=== PATIENT | female | born 1965 | race Caucasian/White ===

== ENCOUNTER 2020-09-29 18:50 | Emergency (ER) | payer OTHER ==
[~2020-09-29] VITALS: Ht 167.6 cm; Wt 108.2 kg
[~2020-09-29 18:50] MED LIST: ASPI325T6 PO; ASPIRIN E.C. 8181 MG PO; BACTRIM DS 8001 TAB PO; BYSTOLIC10 MG PO; CARDIZEM 30MG T30 MG PO; CITRACAL PLUS1 TAB PO; CUBICIN 500MG500 MG IV; CYMBALTA 30MG30 MG PO; DILANTIN 100MG100 MG PO; FERROUS SULFATE65 MG PO; LYRICA 150MG C150 MG PO; MAXIPIME IJ; METANX 2.8 MG-21 TA1 PO; MEVACOR 20M20 MG/TAB PO; MIRAPEX0.25 MG PO; MOBIC15 MG PO; NOVLOG; PREMARIN 0.60.625 M1 PO; RIFADIN300 MG PO; ROCEPHIN VIA1 G/VIAL IV; ROXICODONE 55 MG/TAB PO; TRICOR 48MG48 MG PO; TYLENOL 325MG325 MG PO; VITAMIN D5000 IU PO
[2020-09-29 20:25] LABS: BASO # 0.1 (0.0-0.2); BASO % 0.6 % (0.0-2.0); EOS # 0.4 (0.0-0.7); EOS % 5.3 % (0-4.0); GRAN # 5.6 (1.4-6.5); GRAN % 69.5 % (42.2-75.2); LYMPH # 1.4 (1.2-3.4); LYMPH % 17.4 % (20.0-51.0); MEAN CELL VOLUME 87 fl (80.0-100.0); MEAN CORPUSCULAR HEMOGLOBIN 30 pg (27.0-31.0); MEAN CORPUSCULAR HGB CONC 34 g/dl (33.0-37.0); MEAN PLATELET VOLUME 10.2 fl (7.4-10.4); MONO # 0.5 (0.1-0.6); MONO % 6.7 % (1.7-9.3); PLATELET COUNT 470 K/mm3 (130-400); RED BLOOD COUNT 3.39 M/mm3 (4.10-5.30); REDCELL DISTRIBUTION WIDTH-CV 13.3 % (11.5-14.5)
[2020-09-29 20:26] LABS: HEMATOCRIT 29.6 % (37.0-47.0)
[2020-09-29 20:41] LABS: ALBUMIN 3.9 gm/dL (3.5-5.0); BILIRUBIN,TOTAL 0.1 mg/dL (0.0-1.0); C-REACTIVE PROTEIN 6.1 mg/dL (0.0-0.9); CALCIUM 10.1 mg/dL (8.4-10.2); CREATININE, serum 1.53 (0.52-1.25); POTASSIUM 3.8 mmol/L (3.4-5.0); TOTAL PROTEIN 7.7 gm/dL (6.4-8.2)
[2020-09-29 21:23] LABS: ERYTHROCYTE SEDIMENTATION RATE 85 mm/hr (0-30)
[2020-09-29 22:13] VITALS: BP 155/61; PULSE 65
== END 2020-09-29 22:18 | disposition home or self-care (01) ==
LOC: COL.ER 18:50
PROVIDERS: Emergency Medicine
DX: T81.33XA Disruption of traumatic injury wound repair, initial encounter (principal); T87.40 Infection of amputation stump, unspecified extremity; E11.9 Type 2 diabetes mellitus without complications; I10 Essential (primary) hypertension; Z79.4 Long term (current) use of insulin; Z79.899 Other long term (current) drug therapy; X58.XXXA Exposure to other specified factors, initial encounter
CPT/HCPCS: J7030

== ENCOUNTER 2020-10-03 12:41 | Inpatient (IN) | payer OTHER ==
[~2020-10-03] VITALS: Ht 167.7 cm; Wt 108.0 kg
[2020-10-04] VITALS (12 sets, daily range): BP systolic 134–150; BP diastolic 42–62; PULSE 59–70; TEMP 97.8–98.9
--- NOTE | 2020-10-04 07:30 | NUR ---
Accuchjp 376 and patient states that she was 115 this AM and states that she turned off the Insulin pump. Gave herself bolus of 3.7units of Novolog insulin. Will continue to monitor.
[2020-10-04] MEDS ORDERED: ASPIRIN E.C. 8181 MG PO (07:49)
[2020-10-04] MEDS ORDERED: ZEBETA 5MG5 MG PO (07:53)
[2020-10-04] MEDS ORDERED: CEPHALEXIN500 M1 PO (07:55)
[2020-10-04] MEDS ORDERED: BACTRIM DS 8001 TAB PO (07:56)
--- NOTE | 2020-10-04 08:00 | NUR ---
Accucheck now 337. Anesthesia in the room and informed of glucose levels. IV was started by Genet VILLANUEVA from IV services.
[2020-10-04 10:33] LABS: MEAN CELL VOLUME 91 fl (80.0-100.0); MEAN CORPUSCULAR HGB CONC 32 g/dl (33.0-37.0); MEAN PLATELET VOLUME 9.8 fl (7.4-10.4); PLATELET COUNT 493 K/mm3 (130-400); RED BLOOD COUNT 3.07 M/mm3 (4.10-5.30); REDCELL DISTRIBUTION WIDTH-CV 13.6 % (11.5-14.5)
[2020-10-04 10:41] LABS: HEMATOCRIT 27.9 % (37.0-47.0); MEAN CORPUSCULAR HEMOGLOBIN 29 pg (27.0-31.0)
[2020-10-04 10:46] LABS: C-REACTIVE PROTEIN 2.5 mg/dL (0.0-0.9); CALCIUM 9.5 mg/dL (8.4-10.2); CREATININE, serum 1.8 (0.52-1.25); POTASSIUM 5.2 mmol/L (3.4-5.0)
[2020-10-04 11:45] LABS: BAND 1 % (0-10); EOSINOPHIL 8 % (0-4); HYPOCHROMIA 1+; LYMPHOCYTE 18 % (20.0-51.0); METAMYELOCYTE 1 % (0-0); NEUTROPHILS 69 % (42.0-75.2); PLATELET ESTIMATE INCREASED (NORMAL)
--- NOTE | 2020-10-04 18:20 | NUR ---
Patient doing well post op. Alert and oriented x 3. Wound vac to LLE with bloody drainage present. Patient denies pain at this time. LLE elevated on x 2 pillows. Tolerating diet without difficulties. Transfered to BS with SBA. Prosthesis to RLE. Primitivo wrap to LLE with mild drainage present. Patient denies further needs at this time. Will report off to x ray developing machine operator.
--- NOTE | 2020-10-04 20:00 | NUR ---
PATIENT IS A&O. VSS. DENIES PAIN IN LLE. LEFT BKA DRESSING IS CD&I WITH ACEWRAP AND ICE PACK INPLACE. WOUND VAC TO LLE WITH MOD AMOUNTS OF BLOODY DRAINAGE NOTED. PATIENT EAT/DRINK/VOIDING SUFFICENT AMOUNTS. NO C/O N/V. SUPPER TRAY REMOVED. HS BS WAS 228, PATIENT SELF DOSED INSULIN PUMP. LEFT WRIST AND LEFT HAND IV TO INT. HEAD TO TOE ASSESSMENT COMPLETE. MEDS GIVEN. NO OTHER NEEDS. CALL LIGHT IN REACH.
[2020-10-05 04:19] VITALS: BP 143/53; PULSE 88; TEMP 98.5
[2020-10-05 06:52] LABS: BASO % 0.3 % (0.0-2.0); EOS # 0.1 (0.0-0.7); EOS % 0.5 % (0-4.0); GRAN # 7.2 (1.4-6.5); GRAN % 73.3 % (42.2-75.2); LYMPH # 1.8 (1.2-3.4); LYMPH % 18.1 % (20.0-51.0); MEAN CELL VOLUME 92 fl (80.0-100.0); MEAN CORPUSCULAR HGB CONC 32 g/dl (33.0-37.0); MEAN PLATELET VOLUME 10.4 fl (7.4-10.4); MONO # 0.7 (0.1-0.6); MONO % 6.9 % (1.7-9.3); PLATELET COUNT 471 K/mm3 (130-400); RED BLOOD COUNT 2.63 M/mm3 (4.10-5.30)
[2020-10-05 06:57] LABS: HEMATOCRIT 24.3 % (37.0-47.0); HEMOGLOBIN 7.8 g/dl (12.5-16.0); MEAN CORPUSCULAR HEMOGLOBIN 30 pg (27.0-31.0)
[2020-10-05 07:05] LABS: ANION GAP 5 mmol/L (7-16); BLOOD UREA NITROGEN 31 mg/dL (7-17); CALCIUM 9.6 mg/dL (8.4-10.2); CARBON DIOXIDE 24 mmol/L (22-30); CHLORIDE 109 mmol/L (98-107); CREATININE, serum 1.59 (0.52-1.25); GLUCOSE 78 mg/dL (74-106); MAGNESIUM 2.1 mg/dL (1.6-2.3); POTASSIUM 4.3 mmol/L (3.4-5.0); SODIUM 137 mmol/L (137-145)
[2020-10-05 07:35] LABS: PHENYTOIN (DILANTIN) < 3.0 ug/mL (10.0-20.0)
[2020-10-05 08:43] VITALS: BP 155/66; PULSE 76; TEMP 98.3
--- NOTE | 2020-10-05 10:30 | NUR ---
Patient has been doing well this morning. Her glucose is better after her low this morning. She ate breakfast and her glucose is 210 at this time. She used her meter to check it. Her wound vac is intact and working. Patient denies pain and nausea. Assisted her with getting dressed. She gets to the BSC on her own without issues. No other changes at this time. Call light within reach.
[2020-10-05 11:20] VITALS: BP 153/57; PULSE 69; TEMP 97.8
--- NOTE | 2020-10-05 11:26 | NUR ---
First visit from the manager enrollment. No needs right now.
--- NOTE | 2020-10-05 16:16 | NUR ---
Enamel Shader met with the patient and the patient's Chad to complete intake. The patient lives in [place] with Chad. The patient has one a right prosthesis and once her infection on the left stump heals she will order/have a left one as well. The patient has a cane, walker, rollator, knee scooter, 2 wheelchairs, shower seat, and bedside commode. The patient's PCP is Dr. Paige and patient receives medication at [facility] or [facility]. The patient does not have advance directives but was interested in DPOA-HC form. Form provided. The patient plans to return home with spouse support. The patient declined home health. *Discharge disposition: Home with spouse*
[2020-10-05 16:32] VITALS: BP 142/52; PULSE 63; TEMP 97.8
--- NOTE | 2020-10-05 18:30 | NUR ---
Patients antibiotics given later than ordered because neither of her IV sites would work. She has an order for a PICC line but the AIV nurse is not able to place it today. It took several tries to get the one she has. Patient has not had any pain today. Changed the acewrap to her wound vac site, it was falling off. She has 400ml of blood drainage in the wound vac. No other changes at this time. Call laura davila.
[2020-10-05 19:18] VITALS: BP 150/56; PULSE 64; TEMP 98.2
--- NOTE | 2020-10-05 20:30 | NUR ---
Pt. sitting up in bed at this time. Pt. is A&OX3, assessment complete. INT to lt. forearm patent. Pt. denies pain or other needs, call light within reach.
[2020-10-05 23:55] VITALS: BP 144/46; PULSE 69; TEMP 98.2
[2020-10-06] VITALS (7 sets, daily range): BP systolic 108–145; BP diastolic 41–58; PULSE 58–68; TEMP 97.9–98.4
[2020-10-06 06:43] LABS: BASO # 0.1 (0.0-0.2); BASO % 0.8 % (0.0-2.0); EOS # 0.3 (0.0-0.7); EOS % 4.3 % (0-4.0); GRAN # 3.7 (1.4-6.5); GRAN % 50.5 % (42.2-75.2); LYMPH # 2.6 (1.2-3.4); LYMPH % 35.2 % (20.0-51.0); MEAN CELL VOLUME 93 fl (80.0-100.0); MEAN CORPUSCULAR HGB CONC 32 g/dl (33.0-37.0); MEAN PLATELET VOLUME 10.2 fl (7.4-10.4); MONO # 0.6 (0.1-0.6); PLATELET COUNT 462 K/mm3 (130-400); RED BLOOD COUNT 2.77 M/mm3 (4.10-5.30); REDCELL DISTRIBUTION WIDTH-CV 14.3 % (11.5-14.5); RETIC % 3.6 % (0.5-3.52)
[2020-10-06 06:44] LABS: HEMATOCRIT 25.7 % (37.0-47.0); HEMOGLOBIN 8.2 g/dl (12.5-16.0); MEAN CORPUSCULAR HEMOGLOBIN 30 pg (27.0-31.0)
[2020-10-06 06:47] LABS: PROTHROMBIN TIME 10.9 SECONDS (9.7-12.8)
[2020-10-06 06:57] LABS: ALANINE AMINOTRANSFERASE 16 U/L (4-34); ALBUMIN 3.4 gm/dL (3.5-5.0); ALKALINE PHOSPHATASE 112 U/L (50-136); ANION GAP 5 mmol/L (7-16); AST,SGOT 25 U/L (15-37); BILIRUBIN,TOTAL < 0.1 mg/dL (0.0-1.0); BLOOD UREA NITROGEN 30 mg/dL (7-17); CALCIUM 9.5 mg/dL (8.4-10.2); CARBON DIOXIDE 26 mmol/L (22-30); CHLORIDE 107 mmol/L (98-107); CREATININE, serum 1.45 (0.52-1.25); GLUCOSE 173 mg/dL (74-106); POTASSIUM 4.5 mmol/L (3.4-5.0); SODIUM 138 mmol/L (137-145); TOTAL PROTEIN 6.8 gm/dL (6.4-8.2)
--- NOTE | 2020-10-06 10:10 | NUR ---
Initial visit; Patient thanked fitness and wellness director for looking in on her and offering God's blessings and to keep her in [employer] Offbearer's prayers.
--- NOTE | 2020-10-06 11:56 | NUR ---
Assessment completed, alert/oriented, vital signs stable, denies pain, plans for I&D later today, denies pain at this time, left stump wound vac in place and functioning properly, heart RRR, lungs CTA/no resp. difficulty noted, she is NPO, motitorying blood sugars closely, denies other needs, will continue to monitor
--- NOTE | 2020-10-06 17:30 | NUR ---
Patient arrived back to surgical 343 at this time from PACU, she is alert/oriented, vital signs stable, pain controlled, she had low blood sugars in PACU and she is taking PO without difficulty, will continue to closely motitor sugars, present at bedside, she denies pain at this time
[2020-10-07 00:02] VITALS: BP 116/43; PULSE 69; TEMP 97.9
[2020-10-07 03:59] VITALS: BP 123/42; PULSE 71; TEMP 98.3
--- NOTE | 2020-10-07 05:29 | NUR ---
Awake, alert, oriented x 4, Bilateral BKA, L BKA with dressing clean/dry/intact, hemovac w/o issue, wound vac in use, call abrams w/i reach, denies need for prn pain medication, tolerating po diet w/o issue, will continue to monitor.
[2020-10-07 06:51] LABS: BASO # 0.1 (0.0-0.2); BASO % 0.7 % (0.0-2.0); EOS # 0.4 (0.0-0.7); EOS % 5.2 % (0-4.0); GRAN # 4.3 (1.4-6.5); GRAN % 53.3 % (42.2-75.2); LYMPH # 2.6 (1.2-3.4); LYMPH % 31.4 % (20.0-51.0); MEAN CELL VOLUME 96 fl (80.0-100.0); MEAN CORPUSCULAR HGB CONC 31 g/dl (33.0-37.0); MEAN PLATELET VOLUME 10.2 fl (7.4-10.4); MONO # 0.7 (0.1-0.6); MONO % 8.7 % (1.7-9.3); PLATELET COUNT 419 K/mm3 (130-400); RED BLOOD COUNT 2.47 M/mm3 (4.10-5.30); REDCELL DISTRIBUTION WIDTH-CV 14.6 % (11.5-14.5)
[2020-10-07 06:52] LABS: HEMATOCRIT 23.6 % (37.0-47.0); HEMOGLOBIN 7.4 g/dl (12.5-16.0); MEAN CORPUSCULAR HEMOGLOBIN 30 pg (27.0-31.0)
[2020-10-07 07:07] LABS: CREATININE, serum 1.26 (0.52-1.25); POTASSIUM 4.5 mmol/L (3.4-5.0)
[2020-10-07 07:23] LABS: CALCIUM 9.1 mg/dL (8.4-10.2)
[2020-10-07 08:30] VITALS: BP 104/31; PULSE 69; TEMP 98.8
[2020-10-07 12:51] VITALS: BP 147/45; PULSE 75; TEMP 98.2
[2020-10-07 16:03] VITALS: BP 147/54; PULSE 69; TEMP 98
--- NOTE | 2020-10-07 18:21 | NUR ---
Patient doing well throughout the day, denies pain. PICC line to GUDELIA without complications. Minimal needs throughout the day. Primitivo wrap to LLE is CDI, Hemovac with minimal bloody drainage present, Wound vac present. Patient denies pain or further needs at this time. Will report off to shift leader.
--- NOTE | 2020-10-07 19:07 | NUR ---
Awake, alert, oriented x 4, denies pain, denies needs at this time, dressing to L BKA c/d/i, hemavac intact, wound vac intact w/o issue, no s/s of hypo/hyper glycemia, tolerating diet, updated on plan of care, verbalized understanding.
[2020-10-07 19:44] VITALS: BP 149/57; PULSE 73; TEMP 97.9
[2020-10-08 00:23] VITALS: BP 87/40; PULSE 60; TEMP 97.8
[2020-10-08 00:36] VITALS: BP 107/43
[2020-10-08 04:19] VITALS: BP 105/45; PULSE 59; TEMP 98.1
[2020-10-08 06:14] LABS: HEMATOCRIT 24.1 % (37.0-47.0); HEMOGLOBIN 7.7 g/dl (12.5-16.0); MEAN CELL VOLUME 94 fl (80.0-100.0); MEAN CORPUSCULAR HEMOGLOBIN 30 pg (27.0-31.0); MEAN CORPUSCULAR HGB CONC 32 g/dl (33.0-37.0); MEAN PLATELET VOLUME 10.4 fl (7.4-10.4); PLATELET COUNT 370 K/mm3 (130-400); RED BLOOD COUNT 2.56 M/mm3 (4.10-5.30); REDCELL DISTRIBUTION WIDTH-CV 14.2 % (11.5-14.5)
[2020-10-08 06:22] LABS: CALCIUM 9.5 mg/dL (8.4-10.2); CREATININE, serum 1.23 (0.52-1.25); POTASSIUM 4.5 mmol/L (3.4-5.0)
[2020-10-08 07:08] VITALS: BP 128/45; PULSE 66; TEMP 97.3
--- NOTE | 2020-10-08 09:00 | NUR ---
Patient in bed resting. Alert and oriented x 3. Assessment complete. Dr. Rojas removed drains and wound vac early this AM. Denies pain at this time. Primitivo wrap to LLE is CDI. PICC line to GUDELIA without complications. Denies further needs at this time.
--- NOTE | 2020-10-08 09:03 | NUR ---
Contacted SW for discharge planning.
--- NOTE | 2020-10-08 11:15 | NUR ---
Sw setup Home IV Therapy with Jesusita (# [phone]). The Sw faxed over medical documentations. Jesusita called Sw and approved pt. The pt has used services with the pt in June 2020. Jesusita informed Sw that they would provided everything the pt needs. No supply orders were made. The pt did not want to use HH services because she has experience with her picline. The pt is also a nurse. Jesusita informed Sw she would call the pt and setup the next schedule dose. No other needs stated at this time. Sw to follow up as needed. Elise gave the original med script back to nurse.
== END 2020-10-08 12:20 | disposition home or self-care (01) | DRG 475 ==
LOC: INPTSU 10-04 06:13 → SURG 10-04 06:13
PROVIDERS: Internal Medicine; Physician Assistant; ADMIT Orthopaedic Surgery
PROC: 0Y6J0Z1 Detachment at Left Lower Leg, High, Open Approach (ICD-10-PCS; principal; 2020-10-04 08:45)
DX: T87.81 Dehiscence of amputation stump (principal); N17.9 Acute kidney failure, unspecified; M96.842 Postprocedural seroma of a musculoskeletal structure following a musculoskeletal system procedure; T87.44 Infection of amputation stump, left lower extremity; E78.5 Hyperlipidemia, unspecified; I10 Essential (primary) hypertension; G40.909 Epilepsy, unspecified, not intractable, without status epilepticus; E10.40 Type 1 diabetes mellitus with diabetic neuropathy, unspecified; E10.649 Type 1 diabetes mellitus with hypoglycemia without coma; D64.9 Anemia, unspecified; D47.3 Essential (hemorrhagic) thrombocythemia; Z79.82 Long term (current) use of aspirin; Z88.0 Allergy status to penicillin; Z88.1 Allergy status to other antibiotic agents; Z88.8 Allergy status to other drugs, medicaments and biological substances; Z20.822 Contact with and (suspected) exposure to COVID-19; Z89.511 Acquired absence of right leg below knee; Z96.41 Presence of insulin pump (external) (internal)
CPT/HCPCS: 99223; 99232-AI; A6550; C1751; J0690; J0696; J1100; J2405; J2704; J2765; J3010; J3370; J7030; J7040; J7050

== ENCOUNTER 2021-01-18 10:30 | Inpatient (IN) | payer OTHER ==
[2021-01-18] VITALS (335 sets, daily range): BP systolic 86–170; BP diastolic 50–92; PULSE 64–103; TEMP 98–98.2; O2SAT 77–100
[~2021-01-18] VITALS: Ht 167.6 cm; Wt 113.4 kg
[~2021-01-18 10:30] MED LIST changes: +CEPHALEXIN500 M1 PO; +ZEBETA 5MG5 MG PO
--- NOTE | 2021-01-18 12:50 | NUR ---
Pt arrived by EMS from [facility]. Pt on Nitro drip at 10mcg/min and Heparin drip at 1000units/hr. Pt complaining of chest pain at a 7, that worsens with cough or movement. BG 222. Pt oriented to room and floor. Dr. Mart notified of Pt's arrival. Bruno Felix bedside. Will titrate nitro as needed for bp/cp. Will continue to monitor.
--- NOTE | 2021-01-18 15:30 | NUR ---
AND MIGUEL A RAY NOTIFIED OF TROPONIN 12.9. STATED OK NOT TO CALL WITH NEXT TROPONIN IF TRENDING DOWN. PLAN FOR CARDIAC CATH TOMORROW.
--- NOTE | 2021-01-18 16:45 | NUR ---
notified of BG 446. Will give levimir early and novolog 12 per sliding scale.
[2021-01-18 18:11] LABS: COLLECTION METHOD CATHETER
[2021-01-18 18:21] LABS: MUCOUS Present /lpf; PH 5 (5-8); SQUAMOUS EPITHELIAL 20-50 /hpf; URINE APPEARANCE Cloudy; URINE BACTERIA Rare /hpf; URINE BILIRUBIN Negative (NEGATIVE); URINE BLOOD 1+ (NEGATIVE); URINE COLOR Yellow; URINE GLUCOSE 3+ (NEGATIVE); URINE KETONE 1+ (NEGATIVE); URINE LEUKOCYTE ESTERASE Negative (NEGATIVE); URINE NITRATE Negative (NEGATIVE); URINE PROTEIN(semi-quant) 3+ (NEGATIVE); URINE UROBILINOGEN Negative (NEGATIVE)
[2021-01-18 22:56] LABS: CREATININE, serum 2.25 mg/dL (0.57-1.11)
[2021-01-18 22:57] LABS: SODIUM 130 mmol/L (137-145)
[2021-01-18 23:10] LABS: CALCIUM 9.1 mg/dL (8.4-10.2); CREATININE, serum 2.28 mg/dL (0.57-1.11); MAGNESIUM 1.8 mg/dL (1.6-2.6); PHOSPHOROUS 4.4 mg/dL (2.3-4.7); POTASSIUM 4.7 mmol/L (3.5-4.5)
[2021-01-18 23:12] LABS: FRACTIONAL EXCRETION OF NA+ 0.27 %
[2021-01-19] VITALS (675 sets, daily range): BP systolic 91–128; BP diastolic 50–90; PULSE 54–70; TEMP 97.3–98.2; O2SAT 77–100
[2021-01-19 00:31] LABS: ARTERIAL BLD GAS TCO2 CT 17.7; ARTERIAL BLOOD GAS HCO3 16.9 meq/L (22-26); ARTERIAL BLOOD GAS PCO2 26.8 mmHg (35-45); ARTERIAL BLOOD GAS PO2 90.6 mmHg (80-100); ARTERIAL BLOOD GAS pH 7.42 (7.35-7.45)
[2021-01-19 02:02] LABS: CALCIUM 8.7 mg/dL (8.4-10.2); CREATININE, serum 2.35 mg/dL (0.57-1.11); POTASSIUM 3.9 mmol/L (3.5-4.5)
[2021-01-19 04:09] LABS: MEAN CELL VOLUME 90 fl (80.0-100.0); MEAN CORPUSCULAR HGB CONC 32 g/dl (33.0-37.0); MEAN PLATELET VOLUME 9.5 fl (7.4-10.4); PLATELET COUNT 527 K/mm3 (130-400); RED BLOOD COUNT 2.75 M/mm3 (4.10-5.30); REDCELL DISTRIBUTION WIDTH-CV 14.6 % (11.5-14.5)
[2021-01-19 04:13] LABS: HEMATOCRIT 24.7 % (37.0-47.0); MEAN CORPUSCULAR HEMOGLOBIN 29 pg (27.0-31.0)
[2021-01-19 04:28] LABS: BILIRUBIN,TOTAL 0.3 mg/dL (0.2-1.2); CALCIUM 8.5 mg/dL (8.4-10.2); CHOLESTEROL RISK RATIO 3.6; CREATININE, serum 2.48 mg/dL (0.57-1.11); MAGNESIUM 1.7 mg/dL (1.6-2.6); POTASSIUM 3.8 mmol/L (3.5-4.5); TOTAL PROTEIN 6.3 gm/dL (6.2-8.1)
[2021-01-19 04:43] LABS: THYROID STIMULATING HORMONE 0.759 uIU/mL (0.350-4.940)
[2021-01-19 04:53] LABS: BAND 24 % (0-10); EOSINOPHIL 1 % (0-4); LYMPHOCYTE 6 % (20.0-51.0); METAMYELOCYTE 2 % (0-0); NEUTROPHILS 58 % (42.0-75.2)
[2021-01-19 04:54] LABS: HYPOCHROMIA 1+; PLATELET ESTIMATE INCREASED (NORMAL)
[2021-01-19 07:01] LABS: CALCIUM 8.4 mg/dL (8.4-10.2); CREATININE, serum 2.6 mg/dL (0.57-1.11); POTASSIUM 3.9 mmol/L (3.5-4.5)
--- NOTE | 2021-01-19 07:15 | NUR ---
RECEIVED REPORT FROM KAY GLASS. PT RESTING IN BED. VSS. CALL LIGHT WITHIN REACH. SEE GTT FLOWSHEET.
[2021-01-19 07:52] LABS: PATHOLOGY DIFF REVIEW OK
[2021-01-19 08:35] LABS: CALCIUM 8.3 mg/dL (8.4-10.2); CREATININE, serum 2.74 mg/dL (0.57-1.11); POTASSIUM 4.3 mmol/L (3.5-4.5)
--- NOTE | 2021-01-19 10:00 | NUR ---
BLADDER SCAN PERFORMED, ONLY 8ML NOTED. DR MEHTA NOTIFIED.
[2021-01-19 10:09] LABS: CALCIUM 8.5 mg/dL (8.4-10.2); CREATININE, serum 2.83 mg/dL (0.57-1.11); POTASSIUM 4.1 mmol/L (3.5-4.5)
--- NOTE | 2021-01-19 11:33 | NUR ---
SW met with patient at bedside and completed an MPOA, naming her as her agent. Patient is alert & oriented. Original and copies provided to patient and copy placed on her chart.
--- NOTE | 2021-01-19 11:40 | NUR ---
SW spoke with patient's , Chad Jerry, [phone]) to complete intake and discuss d/c plan as hospitalist was with patient. She and her live in [place] and he states she has a cane, wheelchair, bedside commode, wheely walker and a front wheel walker at home. She has no home 02 needs but she uses a CPAP at night. She gets her medications from [facility] in [place] with no difficulty obtaining them. Patient does not have an MPOA but this worker informed patient's that we could complete one as long as she is a/o. Patient's also informed this worker that patient wanted to change her status from DNR to full recessitation. This worker relayed this to KAY Cutler and she checked with patient, patient confirmed. SW will continue to follow for any discharge needs.
--- NOTE | 2021-01-19 12:06 | NUR ---
SEE MERGE FOR MEDICATION ADMINISTRATION TIMES/DOSAGES AND INTRA/POST SEDATION ASSESSMENT.
[2021-01-19 12:47] LABS: CALCIUM 8.6 mg/dL (8.4-10.2); CREATININE, serum 2.89 mg/dL (0.57-1.11); POTASSIUM 3.9 mmol/L (3.5-4.5)
--- NOTE | 2021-01-19 13:55 | NUR ---
PT TO CATH PROCEDURE. SPOKE TO KAY MARCH IN CATH, PLAN IS TO DO RHC/LHC AND GET CENTRAL LINE CHANGED THEN POTENTIALLY HAVE RADIOLOGIST PLACE HD CATHETER IN [place] IF STILL AVAILABLE AT THAT TIME.
--- NOTE | 2021-01-19 15:30 | NUR ---
PT BACK FROM CATH PROCEDURE. PT IN REVERSE TRENDELENBERG, FLAT TIME STARTED AT 1445. LT GROIN CATH SITE, DRAINAGE NOTED ON GAUZE BUT SOFT AND NOT TENDER TO TOUCH, WILL MONITOR CLOSELY. PLACED BACK ON BEDSIDE CONTINUOUS MONITOR. VSS. CALL LIGHT WITHIN REACH. FLOR GRADY STATES HE WILL BE BACK SHORTLY TO DISCUSS WITH HSUBAND AND PT ABOUT POC AND CATH PROCEDURE.
--- NOTE | 2021-01-19 16:13 | NUR ---
FLOR GRADY AT BEDSIDE DISCUSSING POC AND ANSWERING QUESTIONS AT THIS TIME.
--- NOTE | 2021-01-19 19:15 | NUR ---
Dressing to left groin cath site saturated. Dressing changed, no active bleeding noted and area surrounding soft. 4x4 with tegaderm applied, will monitor for further bleeding
[2021-01-19 23:37] LABS: PARTIAL THROMBOPLASTIN TIME 48.2 SECONDS (26.0-37.0)
[2021-01-20] VITALS (215 sets, daily range): BP systolic 99–157; BP diastolic 59–96; PULSE 55–64; TEMP 97–98.1; O2SAT 73–100
[2021-01-20 04:52] LABS: MEAN CELL VOLUME 90 fl (80.0-100.0); MEAN CORPUSCULAR HGB CONC 32 g/dl (33.0-37.0); MEAN PLATELET VOLUME 9.7 fl (7.4-10.4); PLATELET COUNT 515 K/mm3 (130-400); RED BLOOD COUNT 2.83 M/mm3 (4.10-5.30); REDCELL DISTRIBUTION WIDTH-CV 14.8 % (11.5-14.5)
[2021-01-20 05:02] LABS: HEMATOCRIT 25.5 % (37.0-47.0); HEMOGLOBIN 8.2 g/dl (12.5-16.0); MEAN CORPUSCULAR HEMOGLOBIN 29 pg (27.0-31.0)
[2021-01-20 05:09] LABS: CALCIUM 8.2 mg/dL (8.4-10.2); CREATININE, serum 3.69 mg/dL (0.57-1.11); POTASSIUM 4.5 mmol/L (3.5-4.5)
[2021-01-20 05:16] LABS: BAND 12 % (0-10); EOSINOPHIL 1 % (0-4); HYPOCHROMIA 1+; LYMPHOCYTE 15 % (20.0-51.0); METAMYELOCYTE 1 % (0-0); NEUTROPHILS 65 % (42.0-75.2); PLATELET ESTIMATE INCREASED (NORMAL)
[2021-01-20 05:17] LABS: ANISOCYTOSIS 1+
--- NOTE | 2021-01-20 07:20 | NUR ---
RECEIVED REPORT FROM KAY GLASS. PT RESTING IN BED ON 2L VIA NC. VSS. CALL LIGHT WITHIN REACH. SEE GTT FLOWSHEET. FC PATENT AND DRAINING TO GRAVITY.
--- NOTE | 2021-01-20 09:17 | NUR ---
PT C/O SHOB AND LEFT STERNAL CHEST PAIN THAT RADIATES STRAIGHT TO HER BACK 11/01. PT APPEARS RESTLESS. SEE GTT FLOWSHEET FO RNITRO GTT TITRATIONS.
--- NOTE | 2021-01-20 16:40 | NUR ---
PATIENT TOLERATED HER 1ST HD TX WITH NO FLUID REMOVAL. NEXT PLANNED HD TX PENDING LABS & ASSESSMENT.
[2021-01-20 16:46] LABS: HEPATITIS B SURFACE ANTIBODY 57.2 (()); HEPATITIS B SURFACE ANTIGEN Negative (Negative); HEPATITIS C VIRUS ANTIBODY Negative (Negative)
[2021-01-21] VITALS (9 sets, daily range): BP systolic 110–196; BP diastolic 65–105; PULSE 56–70; TEMP 97.6–98.6
[2021-01-21 04:52] LABS: MEAN CELL VOLUME 89 fl (80.0-100.0); MEAN CORPUSCULAR HGB CONC 33 g/dl (33.0-37.0); MEAN PLATELET VOLUME 10.3 fl (7.4-10.4); PLATELET COUNT 462 K/mm3 (130-400); RED BLOOD COUNT 3.03 M/mm3 (4.10-5.30); REDCELL DISTRIBUTION WIDTH-CV 14.9 % (11.5-14.5)
[2021-01-21 05:07] LABS: CALCIUM 8.2 mg/dL (8.4-10.2); CREATININE, serum 3.44 mg/dL (0.57-1.11); POTASSIUM 4.7 mmol/L (3.5-4.5)
[2021-01-21 05:17] LABS: HEMOGLOBIN 8.9 g/dl (12.5-16.0); MEAN CORPUSCULAR HEMOGLOBIN 29 pg (27.0-31.0)
[2021-01-21 06:09] LABS: BAND 9 % (0-10); BASOPHIL 1 % (0-2); LYMPHOCYTE 14 % (20.0-51.0); METAMYELOCYTE 2 % (0-0); NEUTROPHILS 69 % (42.0-75.2)
[2021-01-21 06:10] LABS: ANISOCYTOSIS 1+; PLATELET ESTIMATE INCREASED (NORMAL)
[2021-01-21 06:12] LABS: HYPOCHROMIA 1+
--- NOTE | 2021-01-21 07:10 | NUR ---
RECEIVED REPORT FROM KAY GLASS. PT SLEEPING ON RA. VSS. CALL LIGHT WITHIN REACH. FC PATENT AND DRAINING TO GRAVITY.
--- NOTE | 2021-01-21 11:54 | NUR ---
PATIENT TOLERATED HER 2ND HD TX WITH 500 ML FLUID REMOVAL. NEXT PLANNED HD TX ON Saturday01/23/21 AFTER CARDIAC CATHERIZATION.
--- NOTE | 2021-01-21 12:23 | NUR ---
REPORT GIVEN TO KAY COLEMAN. PT TRANSFERRED VIA WC WITH X1 ASSIST, LEGS ON, AND GAIT BELT BY PHYSICAL THERAPY. PT ON RA. ALL PERSONAL BELONGINGS SENT WITH PT.
--- NOTE | 2021-01-21 13:00 | NUR ---
Patient to room 343 from the ICU by wheelchair. Patient A&Ox4. VSS tachypneic on 2L NC O2 for transport. Nurse oriented the patient to location, room and call light. IV CDI. Dialysis catheter CDI. Patient on droplet precautions. Physical therapy in the room to assist patient from the wheelchair to the bed. Nursing staff assisted patient with removal of prostesis. No further needs expressed. Call light within reach
[2021-01-21] MEDS ORDERED: VITAMIND3 5000 PO (13:51)
--- NOTE | 2021-01-21 18:06 | NUR ---
Patient has been resting since coming to the floor from ICU. A&Ox4. VSS on room air. IV CDI, dialysis CDI. Prosthesis off. Denies pain and discomfort. Droplet precautions in place. Call light within reach
[2021-01-22] VITALS (7 sets, daily range): BP systolic 117–156; BP diastolic 51–75; PULSE 59–66; TEMP 97.6–98.2
--- NOTE | 2021-01-22 01:03 | NUR ---
Patient alert and oriented. Patient reports intermittent chest discomfort 3/10 upon coughing. Non-productive cough noted. Right IJ dialysis catheter site dressing C/D/I. Ellsworth catheter has minimal blood-tinged output. Patient reports some blood clots in ellsworth tubing and requesting catheter irrigation. Called MARY BETH Ruff and order received to irrigate ellsworth catheter PRN. Ellsworth catheter irrigated with sterile technique and patient tolerated procedure well. Call light in reach. Will continue to monitor.
[2021-01-22 06:33] LABS: MEAN CELL VOLUME 90 fl (80.0-100.0); MEAN CORPUSCULAR HGB CONC 33 g/dl (33.0-37.0); MEAN PLATELET VOLUME 10.5 fl (7.4-10.4); PLATELET COUNT 526 K/mm3 (130-400); RED BLOOD COUNT 2.79 M/mm3 (4.10-5.30); REDCELL DISTRIBUTION WIDTH-CV 15.1 % (11.5-14.5)
[2021-01-22 06:38] LABS: HEMATOCRIT 25.2 % (37.0-47.0); HEMOGLOBIN 8.3 g/dl (12.5-16.0); MEAN CORPUSCULAR HEMOGLOBIN 30 pg (27.0-31.0)
--- NOTE | 2021-01-22 06:41 | NUR ---
Patient's ellsworth has bloody output with some mucous like clots. Patient c/o burning pain x1 but resolved with bladder irrigation. WBC count 21.2 this morning. Will endorse to day shift nurse to follow up with MD.
--- NOTE | 2021-01-22 06:46 | NUR ---
Blood-tinged urine output noted around 10 pm last night.Patient c/o burning pain upon urination x1 and requested bladder irrigation last night. Burning pain resolved with bladder irrigation. WBC 21.2 this morning. Will endorse to day shift nurse to follow up with MD.
[2021-01-22 06:49] LABS: CALCIUM 8.4 mg/dL (8.4-10.2); CREATININE, serum 2.58 mg/dL (0.57-1.11); POTASSIUM 4.2 mmol/L (3.5-4.5)
[2021-01-22 06:54] LABS: ANISOCYTOSIS 2+; BAND 7 % (0-10); LYMPHOCYTE 8 % (20.0-51.0); METAMYELOCYTE 6 % (0-0); NEUTROPHILS 77 % (42.0-75.2); POIKILOCYTOSIS 2+
[2021-01-22 06:55] LABS: OVALOCYTES 1+; PLATELET ESTIMATE INCREASED (NORMAL); POLYCHROMASIA 1+
--- NOTE | 2021-01-22 08:00 | NUR ---
Patient sitting up in bed, A&Ox4. VSS intermittent coughing. Reports pain in chest from coughing, pain medication given as requested. IV CDI. Dialysis catheter CDI. Droplet precautions in place. Virk intact. No further needs expressed. Call light within reach
--- NOTE | 2021-01-22 14:25 | NUR ---
Patient recieved from KAY Jones. Upon initial encounter patient states that she is having aching chest pain when she coughs. VSS. Denies any SOA, dizziness, chest pain does not radiate. Denies any further needs at this time. Call light in reach. Encouraged to call if anything changes. at the bedside.
--- NOTE | 2021-01-22 20:00 | NUR ---
Scheduled medications given. Shift assessment preformed. Patient C/O 8/10 pressure/sharp chest pain. BP taken, nitro given. Chest pressure alleviated after 2 doses of nitro, patient still c/o sharp chest pain, escpecially when coughing. PRN pain medication given. MARY BETH Ruff notified. EKG ordered. Patient is currently resting in bed. States that the pain medication has helped. Call light in reach. Fall precautions in place.
[2021-01-23] VITALS (178 sets, daily range): BP systolic 105–172; BP diastolic 55–92; PULSE 55–72; TEMP 98.1–99.3; O2SAT 78–100
--- NOTE | 2021-01-23 00:40 | NUR ---
Received report from KAY Larose around 9pm. Patient resting in bed. Patient states chest pain feeling much better at this time. Rates pain 1-2 out of 10. No acute distress noted. Heparin drip started at 10ml/hr per order around midnight. Call light in reach. Will continue to monitor.
--- NOTE | 2021-01-23 06:09 | NUR ---
Patient remained NPO from midnight. BS 61 at 05:21 am this morning. Patient denies hypoglycemic symptoms. Called MARY BETH Ruff and updated. Per MARY BETH Ruff, it is ok to give 12.5 mg of Dextrose since she is NPO. 12.5 mg of Dextrose IV given per order. BS recheck is 85 at 6am. Patient had nose bleed this morning. Changed to a new gown. Call light in reach. Will continue to monitor.
[2021-01-23 06:32] LABS: ALBUMIN 2.2 gm/dL (3.5-5.0); CALCIUM 8.3 mg/dL (8.4-10.2); CREATININE, serum 1.88 mg/dL (0.57-1.11); MAGNESIUM 1.8 mg/dL (1.6-2.6); PHOSPHOROUS 3.2 mg/dL (2.3-4.7); POTASSIUM 3.6 mmol/L (3.5-4.5)
[2021-01-23 06:52] LABS: MEAN CELL VOLUME 89 fl (80.0-100.0); MEAN CORPUSCULAR HGB CONC 33 g/dl (33.0-37.0); MEAN PLATELET VOLUME 10.6 fl (7.4-10.4); PLATELET COUNT 506 K/mm3 (130-400)
[2021-01-23 06:56] LABS: HEMOGLOBIN 7.9 g/dl (12.5-16.0); MEAN CORPUSCULAR HEMOGLOBIN 29 pg (27.0-31.0)
[2021-01-23 07:36] LABS: BAND 7 % (0-10); EOSINOPHIL 2 % (0-4); LYMPHOCYTE 20 % (20.0-51.0); METAMYELOCYTE 7 % (0-0); NEUTROPHILS 56 % (42.0-75.2); NUCLEATED RED BLOOD CELL 12 (0-6)
[2021-01-23 07:37] LABS: ANISOCYTOSIS 1+; BURR CELLS 1+; PLATELET ESTIMATE INCREASED (NORMAL)
--- NOTE | 2021-01-23 09:28 | NUR ---
Pt doing ok this am. She reports not having any pain at this time. She stated that she had an okay night and has no pain complaints at this time. Central line and dialysis catheter both CDI. Pt has the understanding that she will have heart cath today. PT has been NPO for this. Pt is currently not on the schedule for heart cath, hospitalist and cardiology made aware. Pt denies any needs, call light within reach
[2021-01-23 12:11] LABS: INR 1.7 (0.8-3.0); PROTHROMBIN TIME 19.2 SECONDS (9.7-12.8)
[2021-01-23 12:13] LABS: PARTIAL THROMBOPLASTIN TIME 41.2 SECONDS (26.0-37.0)
--- NOTE | 2021-01-23 13:00 | NUR ---
Pt made aware that she will be going down for cardiac cath around 1400. Pt denies having any questions regarding the procedure. No needs verbalized. Blood sugar did come up after Dextrose given
--- NOTE | 2021-01-23 14:29 | NUR ---
Pt off the floor for heart cath
--- NOTE | 2021-01-23 14:53 | NUR ---
SEE MERGE FOR ALL MEDICATION ADMINISTRATION TIMES/DOSAGES AND INTRA/POST SEDATION ASSESSMENT.
--- NOTE | 2021-01-23 17:25 | NUR ---
PT ADMITTED FROM RESEARCH AND DEVELOPMENT MANAGER. PT'S LEFT FEMORAL SITE C/D/I. PT HAS ANGIOMAX RUNNING. PT IS AXOX4. PT'S VSS. PT ORIENTED TO ROOM AND FLOOR. PT INSTRUCTED ON BED REST. 1824- PT'S BG 59. PT IS ASYMPTAMATIC. SNACK GIVEN AND DINNER ORDERED. WILL CONTINUE TO MONITOR.
[2021-01-23 18:31] LABS: COLLECTION METHOD CATHETER
--- NOTE | 2021-01-23 18:35 | NUR ---
MARIA LUISA CLINTON CALLED AND ASKED FOR SOMETHING FOR PATIENTS COUGH. STATES SHE WILL PLACE ORDERS.
--- NOTE | 2021-01-23 18:46 | NUR ---
PT'S BG STILL 59. PT STATES FEELS BETTER AND LIKE IT IS GOING UP. WILL ENDORSE TO FOLLOWING RN TO CHECK, AWAITING DINNER
[2021-01-23 18:54] LABS: MUCOUS Present /lpf; PH 5 (5-8); SQUAMOUS EPITHELIAL None Seen /hpf; URINE APPEARANCE Turbid; URINE BACTERIA Rare /hpf; URINE BILIRUBIN Negative (NEGATIVE); URINE BLOOD 3+ (NEGATIVE); URINE COLOR Red; URINE GLUCOSE Negative (NEGATIVE); URINE KETONE Negative (NEGATIVE); URINE LEUKOCYTE ESTERASE 3+ (NEGATIVE); URINE NITRATE Negative (NEGATIVE); URINE PROTEIN(semi-quant) 1+ (NEGATIVE); URINE RBC >50 /hpf; URINE UROBILINOGEN Negative (NEGATIVE)
--- NOTE | 2021-01-23 20:30 | NUR ---
Assessment complete and charted. Denies needs. Left femoral site CDI. Call light in reach.
[2021-01-24] VITALS (519 sets, daily range): BP systolic 124–156; BP diastolic 56–86; PULSE 64–75; TEMP 97.4–98.7; O2SAT 73–100
[2021-01-24 04:59] LABS: MEAN CELL VOLUME 89 fl (80.0-100.0); MEAN CORPUSCULAR HGB CONC 33 g/dl (33.0-37.0); MEAN PLATELET VOLUME 10.7 fl (7.4-10.4); PLATELET COUNT 529 K/mm3 (130-400); RED BLOOD COUNT 2.62 M/mm3 (4.10-5.30); REDCELL DISTRIBUTION WIDTH-CV 15.4 % (11.5-14.5)
[2021-01-24 05:04] LABS: HEMATOCRIT 23.4 % (37.0-47.0); HEMOGLOBIN 7.7 g/dl (12.5-16.0); MEAN CORPUSCULAR HEMOGLOBIN 29 pg (27.0-31.0)
[2021-01-24 05:20] LABS: CALCIUM 8.1 mg/dL (8.4-10.2); CREATININE, serum 1.54 mg/dL (0.57-1.11); POTASSIUM 3.8 mmol/L (3.5-4.5)
[2021-01-24 05:36] LABS: BAND 10 % (0-10); EOSINOPHIL 1 % (0-4); LYMPHOCYTE 12 % (20.0-51.0); METAMYELOCYTE 3 % (0-0); NEUTROPHILS 69 % (42.0-75.2)
[2021-01-24 05:37] LABS: ANISOCYTOSIS 1+; OVALOCYTES 1+; PLATELET ESTIMATE NORMAL (NORMAL); POIKILOCYTOSIS 1+
--- NOTE | 2021-01-24 06:22 | NUR ---
Patient had uneventful night. Left femoral site remained CDI. Given robitussin this AM. Denies other needs. Call light in reach.
--- NOTE | 2021-01-24 07:00 | NUR ---
PT RESTING IN BED. VSS. WILL CONTINUE TO MONITOR.
--- NOTE | 2021-01-24 07:14 | NUR ---
Report given to KAY Roblero
--- NOTE | 2021-01-24 08:57 | NUR ---
EDOUARD RAY WITH ASKED REGARDING POSSIBLE PICC AND DC FEMORAL CVC. STATES SHE WILL DISCUSS WITH . WILL HOLD OFF ON HD THIS AM D/T IMPROVING LABS AND INCREASED URINE OUTPUT.
--- NOTE | 2021-01-24 09:07 | NUR ---
SPOKE WITH JETT WITH INFECTION PREVENTION. STATES OK TO DC ISOLATION AT THIS TIME/
--- NOTE | 2021-01-24 21:07 | NUR ---
Assessment complete and charted. Bed bath given. Given PRN ativan and robitussin. Denies needs. Call light in reach.
--- NOTE | 2021-01-24 23:22 | NUR ---
Patient ellsworth clotted off with yellow sediment. Flushed and draining properly. Urinated around ellsworth. Bed changed. Denies needs. Call light in reach.
[2021-01-25] VITALS (324 sets, daily range): BP systolic 118–148; BP diastolic 61–80; PULSE 62–70; TEMP 96.7–99.4; O2SAT 72–100
[2021-01-25 05:29] LABS: MEAN CELL VOLUME 91 fl (80.0-100.0); MEAN CORPUSCULAR HGB CONC 32 g/dl (33.0-37.0); MEAN PLATELET VOLUME 10.9 fl (7.4-10.4); PLATELET COUNT 554 K/mm3 (130-400); RED BLOOD COUNT 2.65 M/mm3 (4.10-5.30); REDCELL DISTRIBUTION WIDTH-CV 15.9 % (11.5-14.5)
[2021-01-25 05:38] LABS: HEMOGLOBIN 7.7 g/dl (12.5-16.0); MEAN CORPUSCULAR HEMOGLOBIN 29 pg (27.0-31.0)
--- NOTE | 2021-01-25 05:40 | NUR ---
Patient had 1 episode of sharp sternal chest pain after coughing episode. Elzbieta CLINTON notified. EKG was obtained. Morphine 1mg given and robitussin. Pain resolved. Denies other needs. Otherwise uneventful night.
[2021-01-25 05:43] LABS: CALCIUM 8.2 mg/dL (8.4-10.2); CREATININE, serum 1.87 mg/dL (0.57-1.11); POTASSIUM 4.4 mmol/L (3.5-4.5)
[2021-01-25 06:05] LABS: BAND 2 % (0-10); EOSINOPHIL 1 % (0-4); LYMPHOCYTE 13 % (20.0-51.0); METAMYELOCYTE 1 % (0-0); MYELOCYTE 3 % (0-0); NEUTROPHILS 70 % (42.0-75.2); PLATELET ESTIMATE INCREASED (NORMAL)
--- NOTE | 2021-01-25 07:14 | NUR ---
Report given to KAY Castillo
--- NOTE | 2021-01-25 07:15 | NUR ---
RECEIVED REPORT FROM KAY PARNELL. PT SLEEPING IN BED ON PT'S OWN CPAP. VSS. CALL LIGHT WITHIN REACH. FC PATENT AND DRAINING TO GRAVITY.
--- NOTE | 2021-01-25 08:50 | NUR ---
SANCHES BAG PLACED IN ICE AT THIS TIME TO START 24 HOUR URINE COLLECTION PER ORDERS. PT UPDATED ON POC, VERBALIZED UNDERSTANDING. ACCORDING TO FLOR NUNN NO DIALYSIS TODAY AND WILL REASSESS TOMORROW.
--- NOTE | 2021-01-25 13:20 | NUR ---
FC EXCHANGED PER DR GRIFFIN'S REQUEST. STERILE TECHNIGUE PERFORMED. CENTRAL LINE DRESSING CHANGED WELL IN RT FEMORAL, STERILE TECHNIQUE PERFORMED. PT TOELRATED BOTH PROCEDURES WELL.
[2021-01-26] VITALS: BP 151/82; PULSE 69; TEMP 98.4
[2021-01-26 04:00] VITALS: BP 148/90; PULSE 69; TEMP 98.6
[2021-01-26 05:53] LABS: HEMATOCRIT 24.5 % (37.0-47.0); HEMOGLOBIN 7.8 g/dl (12.5-16.0); MEAN CELL VOLUME 92 fl (80.0-100.0); MEAN CORPUSCULAR HEMOGLOBIN 29 pg (27.0-31.0); MEAN CORPUSCULAR HGB CONC 32 g/dl (33.0-37.0); PLATELET COUNT 551 K/mm3 (130-400); RED BLOOD COUNT 2.67 M/mm3 (4.10-5.30); REDCELL DISTRIBUTION WIDTH-CV 17.2 % (11.5-14.5)
[2021-01-26 06:05] LABS: CALCIUM 8.6 mg/dL (8.4-10.2); CREATININE, serum 1.7 mg/dL (0.57-1.11); POTASSIUM 4.2 mmol/L (3.5-4.5)
--- NOTE | 2021-01-26 07:00 | NUR ---
RECEIVED REPORT FROM KAY DALLAS. PT RESTING IN BED WATCHING TV. FC PATENT AND DRAINING TO GRAVITY, ON ICE FOR 24 HR URINE COLLECTION. CALL LIGHT WITHIN REACH. VSS.
[2021-01-26 07:15] LABS: EOSINOPHIL 5 % (0-4); METAMYELOCYTE 1 % (0-0); MYELOCYTE 1 % (0-0); NUCLEATED RED BLOOD CELL 6 (0-6)
[2021-01-26 07:16] LABS: ANISOCYTOSIS 2+; BAND 7 % (0-10); LYMPHOCYTE 5 % (20.0-51.0); NEUTROPHILS 74 % (42.0-75.2); PLATELET ESTIMATE INCREASED (NORMAL)
[2021-01-26 07:17] LABS: HYPOCHROMIA 1+
[2021-01-26 08:00] VITALS: BP 137/78; PULSE 66; TEMP 98.8
[2021-01-26 11:37] LABS: URINE TOTAL VOLUME 1500 mL
[2021-01-26 12:00] VITALS: BP 111/85; PULSE 68; TEMP 98.9
--- NOTE | 2021-01-26 14:25 | NUR ---
HD NON TUNNELED CATHETER DCd PER ORDERS. SITE CLEANED AND GAUZE DRESSING WITH TEGADERM PLACED. CLARKE PRESSURE HELP FOR 10 MINS. PT EDUCATED TO LET RN KNOW IF HAVE SUDDEN CHEST PAIN OR SHOB FOR POSSIBLE COMPLICATIONS. PT VERBALIZED UNDERSTANDING. PT KNOWS TO LIE FLAT AND STILL FOR THE NEXT 30 MINS. WILL MONITOR PT CLOSELY.
--- NOTE | 2021-01-26 15:30 | NUR ---
REPORT GIVEN TO KAY WARD. PT TRASNFERRED VIA WC ON RA WITH PHYSICAL THERAPY ASSISTANCE WITH TRANSFER WITH LEFT LEG ON, GAIT BELT, AND WALKER. ALL PERSONAL BELONGINGS SENT WITH PT.
[2021-01-26] MEDS ORDERED: PREMARIN 0.60.625 M1 PO (15:57)
--- NOTE | 2021-01-26 16:04 | NUR ---
PT ORIENTED TO HER ROOM. ASSESSMENT COMPLETED. DENIES ANY NEEDS. WILL CONTINUE TO MONITOR.
[2021-01-26 17:11] VITALS: BP 126/64; PULSE 65; TEMP 98.6
[2021-01-26 19:25] VITALS: BP 149/65; PULSE 69; TEMP 98.5
--- NOTE | 2021-01-26 20:00 | NUR ---
PATIENT IS ALERT AND ORIENTED X4. PATIENT SITTING UP IN BED. AT BEDSIDE EARLIER. PATIENT IS ON TELE AND ADA DIET. PATIENT HAS BILATERAL BKA AND IS MAX ASSIST. PATIENT ON ACHS CHECKS AND HAS CENTRAL LINE TO RIGHT FEMORAL. PATIENT HAS SANCHES IN WITH YELLOW AND CLEAR OUTPUT. PATIENT HAD DIALYSIS CATH PULLED ON RIGHT UPPER. GAUZE AND TAPE COVERING. CDI. PATIENT POTENTIAL DISCHARGE IN AM. PATIENT COMPLAING OF PAIN FROM COUGH. MEDS GIVEN PER ORDERS. PATIENT DENIES FURTHER NEEDS AT THIS TIME. CALL LIGHT WITHIN REACH. HEAD TO TOE ASSESSMENT COMPLETE.
--- NOTE | 2021-01-26 21:45 | NUR ---
PATIENT GIVEN COUGH MEDS AND PAIN MEDS PER ORDERS WITH RATING PAIN 8/10. PATIENT PUT ON CPAP FROM HOME. NO FURTHER NEEDS AT THIS TIME.
[2021-01-27 00:11] VITALS: BP 109/63; PULSE 53; TEMP 98.4
[2021-01-27 04:02] VITALS: BP 134/71; PULSE 56; TEMP 98.3
--- NOTE | 2021-01-27 06:07 | NUR ---
PATIENT SLEPT THROUGH NIGHT WITH CPAP ON. PATIENT HAD LOW BLOOD SUGAR OF 55 THIS MORNING. GIVEN JUICE AND PEACHES. AT RECHECK PATIENT BLOOD SUGAR WAS 53. GIVEN CRACKERS AND PEANUT BUTTER. AT RECHECK BLOOD SUGAR WAS 81. PATIENT STATES SHE WAS NOT FEELING BAD. NO FURTHER NEEDS AT THIS TIME. WILL REPORT TO DAYSKSFT.
[2021-01-27 06:37] LABS: MEAN CELL VOLUME 93 fl (80.0-100.0); MEAN CORPUSCULAR HGB CONC 31 g/dl (33.0-37.0); MEAN PLATELET VOLUME 11.1 fl (7.4-10.4); PLATELET COUNT 499 K/mm3 (130-400); RED BLOOD COUNT 2.64 M/mm3 (4.10-5.30); REDCELL DISTRIBUTION WIDTH-CV 18.1 % (11.5-14.5)
[2021-01-27 06:48] LABS: HEMATOCRIT 24.6 % (37.0-47.0); HEMOGLOBIN 7.7 g/dl (12.5-16.0); MEAN CORPUSCULAR HEMOGLOBIN 29 pg (27.0-31.0)
[2021-01-27 06:53] LABS: CALCIUM 8.8 mg/dL (8.4-10.2); CREATININE, serum 1.28 mg/dL (0.57-1.11); POTASSIUM 3.6 mmol/L (3.5-4.5)
[2021-01-27 07:36] LABS: BAND 5 % (0-10); EOSINOPHIL 5 % (0-4); METAMYELOCYTE 2 % (0-0); NUCLEATED RED BLOOD CELL 1 (0-6)
[2021-01-27 07:37] LABS: ANISOCYTOSIS 2+; HYPOCHROMIA 1+; PLATELET ESTIMATE INCREASED (NORMAL)
[2021-01-27 07:39] LABS: LYMPHOCYTE 18 % (20.0-51.0); NEUTROPHILS 65 % (42.0-75.2)
[2021-01-27 07:43] VITALS: BP 123/61; PULSE 62; TEMP 98.5
--- NOTE | 2021-01-27 08:00 | NUR ---
Patient sitting up in bed, A&Ox4. VSS. IV CDI. Denies pain and discomfort. No reported SOB. RT lower extremity patient states is still swollen and not fitting properly in prosthesis. Virk intact. No further needs expressed. Call light within reach
[2021-01-27 11:18] VITALS: BP 140/74; PULSE 66; TEMP 98.1
--- NOTE | 2021-01-27 11:20 | NUR ---
Virk removed, 10 ml removed from the balloon. Pericare provided before and after removal. BSC near the bed. Patient tolerated well. No further needs expressed. Call light within reach
[2021-01-27] MEDS ORDERED: PLAVIX 75MG TAB75 MG PO ×2 (13:41)
[2021-01-27] MEDS ORDERED: ISORDIL 10MG10 MG PO ×2 (13:42)
[2021-01-27] MEDS ORDERED: APRESOLINE 25MG25 MG PO ×2 (13:42)
[2021-01-27] MEDS ORDERED: LASIX 40MG TABL40 MG PO ×2 (13:44)
--- NOTE | 2021-01-27 14:39 | NUR ---
Sterile process used to remove Triple lumen RT femoral site. 19cm removed, tip intact. 15 minutes held pressure. Gauze and tegaderm applied. Patient instructed to lay flat for 30 minutes after removal. Patient verbalized an understanding. Site CDI. Free from hematoma. will continue to monitor. Patient instructed not to lift greater than 20lbs. Call light within reach
[2021-01-27 15:21] VITALS: BP 151/70; PULSE 72; TEMP 98.6
--- NOTE | 2021-01-27 16:06 | NUR ---
Patient taken by wheelchair to the front entrance to vehicle. with the patient. Discharge paperwork and personal belongings with the patient. No further needs expressed.
== END 2021-01-27 16:05 | disposition home or self-care (01) | DRG 246 ==
LOC: IMCU 10:30 → SURG 13:26 → ICU 13:26 → SURG 01-21 13:18 → ICU 01-23 18:30 → SURG 01-26 16:19
PROVIDERS: Internal Medicine; Internal Medicine Infectious Disease; Internal Medicine Interventional Cardiology; Internal Medicine Nephrology; Nurse Practitioner; Nurse Practitioner Family; Physician Assistant; Student in an Organized Health Care Education/Training Program; ADMIT Internal Medicine
PROC: 05HM33Z Insertion of Infusion Device into Right Internal Jugular Vein, Percutaneous Approach (ICD-10-PCS; 2021-01-20)
PROC: 027034Z Dilation of Coronary Artery, One Artery with Drug-eluting Intraluminal Device, Percutaneous Approach (ICD-10-PCS; principal; 2021-01-23)
PROC: 4A023N7 Measurement of Cardiac Sampling and Pressure, Left Heart, Percutaneous Approach (ICD-10-PCS; 2021-01-23)
PROC: B2111ZZ Fluoroscopy of Multiple Coronary Arteries using Low Osmolar Contrast (ICD-10-PCS; 2021-01-23)
PROC: 5A09557 Assistance with Respiratory Ventilation, Greater than 96 Consecutive Hours, Continuous Positive Airway Pressure (ICD-10-PCS; 2021-01-23)
DX: I21.4 Non-ST elevation (NSTEMI) myocardial infarction (principal); E11.10 Type 2 diabetes mellitus with ketoacidosis without coma; J96.01 Acute respiratory failure with hypoxia; I50.23 Acute on chronic systolic (congestive) heart failure; N17.9 Acute kidney failure, unspecified; I13.0 Hypertensive heart and chronic kidney disease with heart failure and stage 1 through stage 4 chronic kidney disease, or unspecified chronic kidney disease; N39.0 Urinary tract infection, site not specified; J84.9 Interstitial pulmonary disease, unspecified; E78.5 Hyperlipidemia, unspecified; G40.909 Epilepsy, unspecified, not intractable, without status epilepticus; Z68.37 Body mass index [BMI] 37.0-37.9, adult; B97.10 Unspecified enterovirus as the cause of diseases classified elsewhere; B97.89 Other viral agents as the cause of diseases classified elsewhere; D69.6 Thrombocytopenia, unspecified; E11.40 Type 2 diabetes mellitus with diabetic neuropathy, unspecified; Z96.41 Presence of insulin pump (external) (internal); I25.10 Atherosclerotic heart disease of native coronary artery without angina pectoris; E66.9 Obesity, unspecified; I25.5 Ischemic cardiomyopathy; N18.9 Chronic kidney disease, unspecified; E11.22 Type 2 diabetes mellitus with diabetic chronic kidney disease; D64.9 Anemia, unspecified; I48.0 Paroxysmal atrial fibrillation; Z89.512 Acquired absence of left leg below knee; Z89.511 Acquired absence of right leg below knee; Z90.710 Acquired absence of both cervix and uterus; Z79.4 Long term (current) use of insulin; Z99.2 Dependence on renal dialysis
CPT/HCPCS: 99223-AI; 99232-AI; 99233-AI; C1725; C1760; C1769; C1874; C1887; C1894; C9600; J0456; J0583; J0696; J1450; J1644; J1815; J1940; J2250; J2270; J2405; J2550; J3010; J7030; J7050; Q9967

== ENCOUNTER 2021-01-31 00:08 | Inpatient (IN) | payer OTHER ==
[2021-01-31] VITALS (734 sets, daily range): BP systolic 95–174; BP diastolic 60–88; PULSE 62–67; TEMP 97.7–98.5; O2SAT 86–100
[~2021-01-31] VITALS: Ht 167.6 cm; Wt 114.4 kg
[~2021-01-31 00:08] MED LIST changes: +APRESOLINE 25MG25 MG PO; +ISORDIL 10MG10 MG PO; +LASIX 40MG TABL40 MG PO; +PLAVIX 75MG TAB75 MG PO; +VITAMIND3 5000 PO
[2021-01-31 01:03] LABS: BASO # 0.1 K/mm3 (0.0-0.2); BASO % 0.4 % (0.0-2.0); EOS # 0.1 K/mm3 (0.0-0.7); EOS % 0.4 % (0-4.0); GRAN # 12.7 K/mm3 (1.4-6.5); GRAN % 87.4 % (42.2-75.2); LYMPH # 0.7 K/mm3 (1.2-3.4); LYMPH % 4.8 % (20.0-51.0); MEAN CELL VOLUME 99 fl (80.0-100.0); MEAN CORPUSCULAR HGB CONC 29 g/dl (33.0-37.0); MEAN PLATELET VOLUME 10.9 fl (7.4-10.4); MONO # 0.7 K/mm3 (0.1-0.6); MONO % 4.7 % (1.7-9.3); PLATELET COUNT 729 K/mm3 (130-400); RED BLOOD COUNT 2.94 M/mm3 (4.10-5.30); REDCELL DISTRIBUTION WIDTH-CV 18.9 % (11.5-14.5)
[2021-01-31 01:07] LABS: HEMOGLOBIN 8.5 g/dl (12.5-16.0); MEAN CORPUSCULAR HEMOGLOBIN 29 pg (27.0-31.0)
[2021-01-31 01:27] LABS: ACETONE,SERUM MODERATE
[2021-01-31 01:29] LABS: ALANINE AMINOTRANSFERASE 82 U/L (0-55); ALBUMIN 2.4 gm/dL (3.5-5.0); ALKALINE PHOSPHATASE 442 U/L (40-150); ANION GAP 27 mmol/L (7-16); AST,SGOT 33 U/L (5-34); BILIRUBIN,TOTAL 0.4 mg/dL (0.2-1.2); BLOOD UREA NITROGEN 41 mg/dL (10-20); CALCIUM 8.9 mg/dL (8.4-10.2); CHLORIDE 96 mmol/L (98-107); LIPASE 32 U/L (8-78); POTASSIUM 5.1 mmol/L (3.5-4.5); SODIUM 132 mmol/L (136-145); TOTAL PROTEIN 7.3 gm/dL (6.2-8.1)
[2021-01-31 01:35] LABS: GLUCOSE 757 mg/dL (70-99)
[2021-01-31 01:36] LABS: CARBON DIOXIDE 9 mmol/L (22-29)
[2021-01-31 01:44] LABS: TROPONIN-I 1.358 ng/mL (0.00-0.033)
--- NOTE | 2021-01-31 02:50 | NUR ---
PT TO ICU 8 AT 0230 PER CART. PT TRANSFERRED SELF FROM CART TO BED. PLACED ON MONITOR. INSULIN GTT RUNNING 5 U/HR. GLUCOSE ASSESSED ON ARRIVAL TO ICU, 430. LAST GLUCOSE 530 PER TONI VILLANUEVA. INSULIN DECREASED TO 4 U/HR PER PROTOCOL. MARIA LUISA CLINTON AT BEDSIDE. PT RESTING IN BED. CALL LIGHT WITHIN REACH.
--- NOTE | 2021-01-31 03:30 | NUR ---
OKAY TO DRAW LACTIC AT 0500 WITH AM LABS PER MARIA LUISA CLINTON R/T MULTIPLE ATTEMPTS WITH NO SUCCESS.
[2021-01-31 03:40] LABS: COLLECTION METHOD CLEAN CATCH
[2021-01-31 03:59] LABS: MUCOUS Present /lpf; PH 5 (5-8); SQUAMOUS EPITHELIAL 0-2 /hpf; URINE APPEARANCE Clear; URINE BACTERIA None Seen /hpf; URINE BILIRUBIN Negative (NEGATIVE); URINE BLOOD Negative (NEGATIVE); URINE COLOR Yellow; URINE GLUCOSE 3+ (NEGATIVE); URINE KETONE 1+ (NEGATIVE); URINE LEUKOCYTE ESTERASE Negative (NEGATIVE); URINE NITRATE Negative (NEGATIVE); URINE PROTEIN(semi-quant) 1+ (NEGATIVE); URINE RBC 0-2 /hpf; URINE UROBILINOGEN Negative (NEGATIVE)
--- NOTE | 2021-01-31 04:57 | NUR ---
INSULIN GTT PLACED ON HOLD IN ATTEMPT TO DRAW AM LABS FROM IV SITE PER MARIA LUISA CLINTON. MARIA LUISA CLINTON UPDATED ON INCREASING BGM AT 0450.
--- NOTE | 2021-01-31 05:04 | NUR ---
INSULIN GTT RESUMED AT 7 U/HR
[2021-01-31 05:36] LABS: CALCIUM 8.3 mg/dL (8.4-10.2); CREATININE, serum 1.75 mg/dL (0.57-1.11); MAGNESIUM 1.8 mg/dL (1.6-2.6); PHOSPHOROUS 3.3 mg/dL (2.3-4.7); POTASSIUM 4.9 mmol/L (3.5-4.5)
[2021-01-31 06:21] LABS: MEAN CELL VOLUME 98 fl (80.0-100.0); MEAN CORPUSCULAR HGB CONC 30 g/dl (33.0-37.0); MEAN PLATELET VOLUME 10.7 fl (7.4-10.4); RED BLOOD COUNT 2.65 M/mm3 (4.10-5.30); REDCELL DISTRIBUTION WIDTH-CV 18.7 % (11.5-14.5)
[2021-01-31 06:23] LABS: HEMATOCRIT 25.9 % (37.0-47.0); HEMOGLOBIN 7.7 g/dl (12.5-16.0); MEAN CORPUSCULAR HEMOGLOBIN 29 pg (27.0-31.0); PLATELET COUNT 570 K/mm3 (130-400)
[2021-01-31 06:37] LABS: LYMPHOCYTE 6 % (20.0-51.0); METAMYELOCYTE 1 % (0-0); NEUTROPHILS 88 % (42.0-75.2)
[2021-01-31 06:38] LABS: ANISOCYTOSIS 1+; MICROCYTOSIS 1+; OVALOCYTES 1+; PLATELET ESTIMATE INCREASED (NORMAL); POIKILOCYTOSIS 1+
--- NOTE | 2021-01-31 09:24 | NUR ---
Patient a readmit from 01/18. rehabilitation worker met with patient to touch base on her insulin pump. Patient states that after dc she was doing really good and then her pump "malfunctioned" and she started swelling then she couldn't keep her sugars regulated. Patient reports that she just got a new pump 1.5 years ago. She reports that she does not have an channel cementer insole machine currently and states that her PCP "does something" with her pump every time she goes in to see him. Collaborated with hospitalist before rounds.
--- NOTE | 2021-01-31 09:40 | NUR ---
Dr. Ornelas at bedside to address plan of care. All questions and concerns addressed at this time.
--- NOTE | 2021-01-31 11:51 | NUR ---
SAVITA contacted Dr. Hurst's office who confirms that the patient's last vist was June 2020. Patient's insulin pump was replaced in April 2019. No referrals to an security sales consultant have been made by Dr. Hurst.
--- NOTE | 2021-01-31 18:17 | NUR ---
Resting in bed no complaints at this time.
[2021-01-31 18:42] LABS: CALCIUM 8.5 mg/dL (8.4-10.2); CREATININE, serum 1.45 mg/dL (0.57-1.11); POTASSIUM 4.4 mmol/L (3.5-4.5)
[2021-02-01] VITALS (695 sets, daily range): BP systolic 53–181; BP diastolic 30–97; PULSE 58–79; TEMP 97.8–98.7; O2SAT 72–100
--- NOTE | 2021-02-01 05:57 | NUR ---
PT A/O X4. DENIES PAIN. NITRO GTT TITRATED FOR SBP >90 <110. CURRENT BP 101/65. PT SLEPT WELL OVERNIGHT, USING HOME CPAP. SANCHES PATENT AND DRAINING WITH ADEQUATE OUTPUT. PT RESTING WITH EYES CLOSED. CALL LIGHT WITHIN REACH.
[2021-02-01 06:27] LABS: BASO # 0.1 K/mm3 (0.0-0.2); BASO % 0.8 % (0.0-2.0); EOS # 0.5 K/mm3 (0.0-0.7); EOS % 5.6 % (0-4.0); GRAN # 5.6 K/mm3 (1.4-6.5); GRAN % 60.8 % (42.2-75.2); HEMATOCRIT 25.4 % (37.0-47.0); HEMOGLOBIN 7.9 g/dl (12.5-16.0); LYMPH # 2.2 K/mm3 (1.2-3.4); LYMPH % 23.5 % (20.0-51.0); MEAN CELL VOLUME 93 fl (80.0-100.0); MEAN CORPUSCULAR HEMOGLOBIN 29 pg (27.0-31.0); MEAN CORPUSCULAR HGB CONC 31 g/dl (33.0-37.0); MEAN PLATELET VOLUME 10.2 fl (7.4-10.4); MONO # 0.8 K/mm3 (0.1-0.6); MONO % 8.3 % (1.7-9.3); PLATELET COUNT 615 K/mm3 (130-400); RED BLOOD COUNT 2.72 M/mm3 (4.10-5.30); REDCELL DISTRIBUTION WIDTH-CV 19.1 % (11.5-14.5)
[2021-02-01 06:48] LABS: CALCIUM 8.6 mg/dL (8.4-10.2); CREATININE, serum 1.33 mg/dL (0.57-1.11); POTASSIUM 4.2 mmol/L (3.5-4.5)
--- NOTE | 2021-02-01 07:09 | NUR ---
BP NOTED AT 60/30. PT ON NITRO GTT. RATE DECREASED TO 25 MCG/MIN. BP REASSESSED 90/52. DENIES S/S. RESTING IN BED WITH CALL LIGHT.
--- NOTE | 2021-02-01 12:42 | NUR ---
Initial visit; Patient thanked Horseshoer for looking in on her and offering God's blessings and to keep her in Horseshoer's prayers.
--- NOTE | 2021-02-01 14:50 | NUR ---
Dr. Sebastian at bedside to place a central line. Initially attempted left subclavian and was unsuccessful. Was able to place in left femoral. Ok to use per .
--- NOTE | 2021-02-01 15:00 | NUR ---
FLOR Carr at bedside to check up on patient. Notified that despite mulitiple titrations upward on nitro BP continues to mostly run 130-150. However, has been diuresing well and Bruno pleased with output. Will continue with currenlty therapy.
--- NOTE | 2021-02-01 16:00 | NUR ---
Due to multiple attempts with placing a central line, will hold 1600 dose of SQ heparin per Dr. Sebastian.
--- NOTE | 2021-02-01 16:35 | NUR ---
BP reading 53/30. Resting in bed with no complaints and does not appear symptomatic however, had a similar episode of hypotension this morning. Nitro drip dosage cut in half. Will continue to monitor BP closely. Follow up BP 139/64.
--- NOTE | 2021-02-01 17:19 | NUR ---
Patient's BP continues to run around 150-160's systolic despite increasing the nitro. Notified FLOR Carr. Will stop the dopamine and administer 40 mg lasix now and draw a bmp. Will call Bruno with BMP results.
[2021-02-01 18:39] LABS: CALCIUM 9.1 mg/dL (8.4-10.2); CREATININE, serum 1.25 mg/dL (0.57-1.11)
--- NOTE | 2021-02-01 19:00 | NUR ---
BMP Results called to FLOR Carr. No new orders at this time.
--- NOTE | 2021-02-01 19:30 | NUR ---
Received report from KAY Harris.
--- NOTE | 2021-02-01 20:30 | NUR ---
Patient resting quietly in bed watching televison. All vitals within normal limits; denies any pain or discomfort. Patient assisted with use of bed koo; tolerating position changes well. Linens exchanged and bath performed. No further needs noted.
[2021-02-02] VITALS (365 sets, daily range): BP systolic 95–132; BP diastolic 49–66; PULSE 61–71; TEMP 98–98.5; O2SAT 68–100
[2021-02-02 04:52] LABS: BASO # 0.1 K/mm3 (0.0-0.2); BASO % 1.1 % (0.0-2.0); EOS # 0.3 K/mm3 (0.0-0.7); GRAN # 3.6 K/mm3 (1.4-6.5); GRAN % 58.4 % (42.2-75.2); LYMPH # 1.5 K/mm3 (1.2-3.4); LYMPH % 23.8 % (20.0-51.0); MEAN CELL VOLUME 93 fl (80.0-100.0); MEAN CORPUSCULAR HGB CONC 31 g/dl (33.0-37.0); MEAN PLATELET VOLUME 10.1 fl (7.4-10.4); MONO # 0.7 K/mm3 (0.1-0.6); MONO % 11.1 % (1.7-9.3); PLATELET COUNT 545 K/mm3 (130-400); RED BLOOD COUNT 2.51 M/mm3 (4.10-5.30); REDCELL DISTRIBUTION WIDTH-CV 18.9 % (11.5-14.5)
[2021-02-02 04:55] LABS: HEMATOCRIT 23.4 % (37.0-47.0); HEMOGLOBIN 7.3 g/dl (12.5-16.0); MEAN CORPUSCULAR HEMOGLOBIN 29 pg (27.0-31.0)
[2021-02-02 05:10] LABS: CALCIUM 8.6 mg/dL (8.4-10.2); CREATININE, serum 1.34 mg/dL (0.57-1.11); MAGNESIUM 1.9 mg/dL (1.6-2.6); POTASSIUM 3.9 mmol/L (3.5-4.5)
--- NOTE | 2021-02-02 07:00 | NUR ---
REPORT RECEIVED FROM BUFFY RN. PT ON NITRO DRIP. PT'S VSS. WILL CONITUE TO MONITOR.
--- NOTE | 2021-02-02 08:30 | NUR ---
TITRATE OFF NITRO DRIP PER MIGUEL A RAY WITH FOR DISCHARGE TODAY.
[2021-02-02] MEDS ORDERED: ENTRESTO 24 MG1 EACH PO (10:13)
[2021-02-02] MEDS ORDERED: DEMADEX 20MG20 M1 PO (10:14)
[2021-02-02] MEDS ORDERED: LANTUS100 U/ML SQ (10:21)
[2021-02-02] MEDS ORDERED: NOVOLOG 100U100 U/M1 SQ (10:25)
--- NOTE | 2021-02-02 15:55 | NUR ---
IV AND TELE DC'D. DISCHARGE INSTRUCTIONS DISCUSSED WITH PT. SLIDING SCALE DISCUSSED WITH PT. ALL QUESTIONS ANSWERED. PT DRESSED. HELPED PT TO WHEELCHAIR. PT WHEELED TO ER ENTERENCE. HELPED PT TO CAR.
== END 2021-02-02 15:50 | disposition home or self-care (01) | DRG 919 ==
LOC: COL.ER 00:08 → ICU 01:49
PROVIDERS: Emergency Medicine; Internal Medicine; Internal Medicine Interventional Cardiology; Student in an Organized Health Care Education/Training Program; ADMIT Internal Medicine
PROC: 06HN33Z Insertion of Infusion Device into Left Femoral Vein, Percutaneous Approach (ICD-10-PCS; principal; 2021-02-01)
DX: T85.694A Other mechanical complication of insulin pump, initial encounter (principal); E11.10 Type 2 diabetes mellitus with ketoacidosis without coma; N17.9 Acute kidney failure, unspecified; I50.22 Chronic systolic (congestive) heart failure; I13.0 Hypertensive heart and chronic kidney disease with heart failure and stage 1 through stage 4 chronic kidney disease, or unspecified chronic kidney disease; T38.3X6A Underdosing of insulin and oral hypoglycemic [antidiabetic] drugs, initial encounter; I25.10 Atherosclerotic heart disease of native coronary artery without angina pectoris; E78.5 Hyperlipidemia, unspecified; G40.909 Epilepsy, unspecified, not intractable, without status epilepticus; E11.40 Type 2 diabetes mellitus with diabetic neuropathy, unspecified; I48.91 Unspecified atrial fibrillation; D64.9 Anemia, unspecified; F32.A Depression, unspecified; E11.22 Type 2 diabetes mellitus with diabetic chronic kidney disease; N18.30 Chronic kidney disease, stage 3 unspecified; Z96.41 Presence of insulin pump (external) (internal); I25.2 Old myocardial infarction; Z95.5 Presence of coronary angioplasty implant and graft; Z89.512 Acquired absence of left leg below knee; Z89.511 Acquired absence of right leg below knee; Z79.82 Long term (current) use of aspirin; Z79.4 Long term (current) use of insulin; I95.9 Hypotension, unspecified; Z20.822 Contact with and (suspected) exposure to COVID-19
CPT/HCPCS: 99223-AI; 99233-AI; 99239; A4314; C1751; J1265; J1644; J1815; J1940; J7030

== ENCOUNTER → 2021-02-06 | Outpatient (CLI) | payer OTHER ==
[~2021-02-06] MED LIST changes: +DEMADEX 20MG20 M1 PO; +ENTRESTO 24 MG1 EACH PO; +LANTUS100 U/ML SQ; +NOVOLOG 100U100 U/M1 SQ
[2021-02-06 16:40] LABS: BASO # 0.1 K/mm3 (0.0-0.2); BASO % 1.7 % (0.0-2.0); EOS # 0.4 K/mm3 (0.0-0.7); GRAN % 57.5 % (42.2-75.2); HEMATOCRIT 31.4 % (37.0-47.0); HEMOGLOBIN 9.8 g/dl (12.5-16.0); LYMPH # 1.2 K/mm3 (1.2-3.4); LYMPH % 22.5 % (20.0-51.0); MEAN CELL VOLUME 92 fl (80.0-100.0); MEAN CORPUSCULAR HEMOGLOBIN 29 pg (27.0-31.0); MEAN CORPUSCULAR HGB CONC 31 g/dl (33.0-37.0); MEAN PLATELET VOLUME 9.4 fl (7.4-10.4); MONO # 0.6 K/mm3 (0.1-0.6); MONO % 10.9 % (1.7-9.3); PLATELET COUNT 595 K/mm3 (130-400); RED BLOOD COUNT 3.42 M/mm3 (4.10-5.30); REDCELL DISTRIBUTION WIDTH-CV 17.9 % (11.5-14.5)
[2021-02-06 17:10] LABS: CALCIUM 9.2 mg/dL (8.4-10.2); CREATININE, serum 1.64 mg/dL (0.57-1.11); MAGNESIUM 1.8 mg/dL (1.6-2.6); POTASSIUM 4.1 mmol/L (3.5-4.5)
== END ==
LOC: COL.LAB 16:07
PROVIDERS: Internal Medicine
DX: E11.10 Type 2 diabetes mellitus with ketoacidosis without coma (principal); N17.9 Acute kidney failure, unspecified

== ENCOUNTER → 2021-02-24 | Outpatient (CLI) | payer OTHER ==
[2021-02-24 16:27] LABS: BASO % 0.6 % (0.0-2.0); EOS # 0.3 K/mm3 (0.0-0.7); EOS % 5.3 % (0-4.0); GRAN # 3.9 K/mm3 (1.4-6.5); GRAN % 62.9 % (42.2-75.2); LYMPH # 1.4 K/mm3 (1.2-3.4); LYMPH % 21.5 % (20.0-51.0); MEAN CELL VOLUME 93 fl (80.0-100.0); MEAN CORPUSCULAR HGB CONC 32 g/dl (33.0-37.0); MEAN PLATELET VOLUME 10.7 fl (7.4-10.4); MONO # 0.6 K/mm3 (0.1-0.6); MONO % 9.4 % (1.7-9.3); PLATELET COUNT 488 K/mm3 (130-400); RED BLOOD COUNT 3.27 M/mm3 (4.10-5.30); REDCELL DISTRIBUTION WIDTH-CV 15.8 % (11.5-14.5)
[2021-02-24 16:29] LABS: HEMATOCRIT 30.4 % (37.0-47.0); HEMOGLOBIN 9.7 g/dl (12.5-16.0); MEAN CORPUSCULAR HEMOGLOBIN 30 pg (27.0-31.0)
== END ==
LOC: COL.LAB 15:51
PROVIDERS: Physician Assistant
DX: D64.9 Anemia, unspecified (principal); I21.4 Non-ST elevation (NSTEMI) myocardial infarction; N17.9 Acute kidney failure, unspecified

== ENCOUNTER → 2021-03-02 | Outpatient (CLI) | payer OTHER ==
[2021-03-02 18:40] LABS: CALCIUM 9.6 mg/dL (8.4-10.2); CREATININE, serum 1.95 mg/dL (0.57-1.11); POTASSIUM 4.2 mmol/L (3.5-4.5)
== END ==
LOC: ZCOL.LAB 17:40
PROVIDERS: Internal Medicine Nephrology
DX: N17.9 Acute kidney failure, unspecified (principal)

== ENCOUNTER → 2021-05-03 | Outpatient (CLI) | payer OTHER ==
[2021-05-03 07:21] LABS: CALCIUM 9.7 mg/dL (8.4-10.2); CREATININE, serum 2.38 mg/dL (0.57-1.11); POTASSIUM 4.4 mmol/L (3.5-4.5)
== END ==
LOC: COL.LAB 06:13
PROVIDERS: Internal Medicine
DX: E10.65 Type 1 diabetes mellitus with hyperglycemia (principal)

== ENCOUNTER 2021-08-02 16:44 | Inpatient (IN) | payer OTHER ==
[~2021-08-02] VITALS: Ht 167.6 cm; Wt 110.0 kg
[2021-08-02] VITALS (30 sets, daily range): BP systolic 98; BP diastolic 72; PULSE 66; TEMP 98.3; O2SAT 85–100
[2021-08-02 17:09] LABS: HEMOGLOBIN 11.1 g/dl (12.5-16.0); MEAN CELL VOLUME 99 fl (80.0-100.0); MEAN CORPUSCULAR HEMOGLOBIN 31 pg (27-31); MEAN CORPUSCULAR HGB CONC 31 g/dl (33.0-37.0); PLATELET COUNT 582 K/mm3 (130-400); RED BLOOD COUNT 3.64 M/mm3 (4.10-5.30); REDCELL DISTRIBUTION WIDTH-CV 15.3 % (11.5-14.5)
[2021-08-02 17:16] LABS: MUCOUS Present (NOT PRESENT); PH 5 (5-8); SQUAMOUS EPITHELIAL 0-2 /hpf (0-10); URINE APPEARANCE Hazy (CLEAR/HAZY); URINE BACTERIA Rare /hpf (NONE SEEN); URINE BILIRUBIN Negative (NEGATIVE); URINE BLOOD Negative (NEGATIVE); URINE COLOR Yellow (YELLOW); URINE GLUCOSE 3+ (NEGATIVE); URINE KETONE 1+ (NEGATIVE); URINE LEUKOCYTE ESTERASE Negative (NEGATIVE); URINE NITRATE Negative (NEGATIVE); URINE PROTEIN(semi-quant) Negative (NEGATIVE); URINE RBC 0-2 /hpf (0-2); URINE UROBILINOGEN Negative (NEGATIVE)
[2021-08-02 17:18] LABS: COLLECTION METHOD CATHETER
[2021-08-02 17:26] LABS: BAND 3 % (0-10); LYMPHOCYTE 3 % (20.0-51.0); NEUTROPHILS 93 % (42.0-75.2); PLATELET ESTIMATE INCREASED (NORMAL)
[2021-08-02 18:00] LABS: ALANINE AMINOTRANSFERASE 26 U/L (0-55); ALKALINE PHOSPHATASE 251 U/L (40-150); AST,SGOT 62 U/L (5-34); BILIRUBIN,TOTAL 0.2 mg/dL (0.2-1.2); BLOOD UREA NITROGEN 54 mg/dL (10-20); CHLORIDE 91 mmol/L (98-107); CREATININE, serum 3.17 mg/dL (0.57-1.11); SODIUM 133 mmol/L (136-145)
[2021-08-02 18:26] LABS: C-REACTIVE PROTEIN 8.37 mg/dL (0.00-0.50); MAGNESIUM 2.8 mg/dL (1.6-2.6)
[2021-08-02 18:31] LABS: CARBON DIOXIDE < 5 mmol/L (22-29)
[2021-08-02 18:45] LABS: GLUCOSE 813 mg/dL (70-99)
[2021-08-02] MEDS ORDERED: ISORDIL 10MG10 MG PO (19:26)
[2021-08-02] MEDS ORDERED: JARDIANCE10 (19:29)
[2021-08-02] MEDS ORDERED: VERQUVO10 MG PO (19:30)
[2021-08-02] MEDS ORDERED: NOVOLOG 100U100 U/M1 SQ (19:38)
[2021-08-02 20:09] LABS: PHOSPHOROUS 8.9 mg/dL (2.3-4.7)
[2021-08-02 20:22] LABS: TROPONIN-I 2.208 ng/mL (0.00-0.033)
[2021-08-02 20:48] LABS: PHENYTOIN (DILANTIN) 8.5 ug/mL (10.0-20.0)
[2021-08-02 21:39] LABS: CALCIUM 8.1 mg/dL (8.4-10.2); CREATININE, serum 3.39 mg/dL (0.57-1.11)
--- NOTE | 2021-08-02 21:55 | NUR ---
RECEIVED REPORT FROM KAY MONIQUE, PT BROUGHT TO ICU AT 2140, INSULIN RUNNING AT 6.7. INCREASED TO 7.0 UNITS TO FOLLOW UNIT PROTOCOL. CURRENTLY AT BEDSIDE, INITIAL BG OF 540, ALL OTHER VITALS WDL AT THIS TIME
[2021-08-02 22:11] LABS: POTASSIUM 6.8 mmol/L (3.5-4.5)
[2021-08-02] MEDS ORDERED: PLAVIX 75MG TAB75 MG PO (22:24)
[2021-08-02] MEDS ORDERED: DEMADEX 20MG20 M1 PO (22:27)
[2021-08-02 23:11] LABS: HEMOGLOBIN 10.1 g/dl (12.5-16.0)
[2021-08-02 23:14] LABS: HEMATOCRIT 31.5 % (37.0-47.0)
[2021-08-02 23:25] LABS: CALCIUM 8.2 mg/dL (8.4-10.2); CREATININE, serum 3.36 mg/dL (0.57-1.11); POTASSIUM 5.1 mmol/L (3.5-4.5)
[2021-08-03] VITALS (506 sets, daily range): BP systolic 92–124; BP diastolic 43–69; PULSE 61–74; TEMP 97.9–98.6; O2SAT 74–100
[2021-08-03 01:25] LABS: CALCIUM 8.1 mg/dL (8.4-10.2); CREATININE, serum 3.34 mg/dL (0.57-1.11); POTASSIUM 5.1 mmol/L (3.5-4.5)
[2021-08-03 03:42] LABS: CALCIUM 8.3 mg/dL (8.4-10.2); CREATININE, serum 3.31 mg/dL (0.57-1.11); POTASSIUM 4.5 mmol/L (3.5-4.5)
[2021-08-03 03:53] LABS: TROPONIN-I 6 HR POST INITIAL 25.137 ng/mL (0.00-0.033)
[2021-08-03 05:21] LABS: CALCIUM 8.2 mg/dL (8.4-10.2); CREATININE, serum 3.26 mg/dL (0.57-1.11); POTASSIUM 4.8 mmol/L (3.5-4.5)
[2021-08-03 07:06] LABS: CALCIUM 8.3 mg/dL (8.4-10.2); CREATININE, serum 3.18 mg/dL (0.57-1.11); POTASSIUM 4.5 mmol/L (3.5-4.5)
--- NOTE | 2021-08-03 09:55 | NUR ---
Roofer Helper met with patient to discuss discharge planning. Patient lives in [place] with her , Chad (ph#[phone]) and sees Dr. Hurst for primary care. Patient obtains medications from [facility] in [place] with no difficulties. 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 Patient states she has a lot of DME available to her at home from her prior amputations. Patient reports independence with ADLS and plans to return home at time of discharge. Patient states she recently completed DPOA-HC designating her , Chad. Discharge Plan: Home
--- NOTE | 2021-08-03 09:59 | NUR ---
Report called to KAY Jean. Patient transfered up to the medical floor. Alert and oriented and in no distress upon transfer.
--- NOTE | 2021-08-03 10:49 | NUR ---
pt admitted to unit. med rec updated. assessment completed. pt resting in bed and feels slightly drowsy. heparin drip at 10ml/hr. 1/2 ns infusing at 125ml/hr. pt denies any pain or needs at this time. will continue to monitor.
[2021-08-03 11:05] LABS: CALCIUM 8.3 mg/dL (8.4-10.2); CREATININE, serum 2.94 mg/dL (0.57-1.11); POTASSIUM 4.7 mmol/L (3.5-4.5)
[2021-08-03 13:25] LABS: CALCIUM 8.2 mg/dL (8.4-10.2); CREATININE, serum 2.85 mg/dL (0.57-1.11); POTASSIUM 4.6 mmol/L (3.5-4.5)
[2021-08-03 15:24] LABS: CALCIUM 8.3 mg/dL (8.4-10.2); CREATININE, serum 2.88 mg/dL (0.57-1.11); POTASSIUM 4.7 mmol/L (3.5-4.5)
[2021-08-04 00:26] VITALS: BP 112/61; PULSE 70; TEMP 98.6
[2021-08-04 04:44] VITALS: BP 127/56; PULSE 72; TEMP 98
--- NOTE | 2021-08-04 06:20 | NUR ---
ASSESSMENT COMPLETE FOR THIS SHIFT. PT RESTING IN BED WATCHING TV. PT DENIED PAIN, PALPITATIONS, N,V,D, SOB OR DIZZINESS. PT NPO AFTER 0030 (NOTE: PT GIVEN 2oz OF APPLE JUICE AT MIDNIGHT). AROUND 0430HRS PT HAS A BS OF 67. PT GIVEN 12.5gm OF D5 IV. PT'S BS UP TO 99 UPON RECHECK. PT EXPRESSED NO OTHER NEEDS AT THIS TIME. CALL LIGHT WITHIN REACH.
[2021-08-04 06:57] LABS: BASO # 0.1 K/mm3 (0.0-0.2); BASO % 0.5 % (0.0-2.0); EOS # 0.1 K/mm3 (0.0-0.7); EOS % 0.7 % (0.0-4.0); GRAN # 8.1 K/mm3 (1.4-6.5); GRAN % 75.6 % (42.2-75.2); LYMPH # 1.5 K/mm3 (1.2-3.4); LYMPH % 14.1 % (20.0-51.0); MEAN CORPUSCULAR HGB CONC 34 g/dl (33.0-37.0); MEAN PLATELET VOLUME 10.5 fl (7.4-10.4); MONO % 8.8 % (1.7-9.3); RED BLOOD COUNT 3.09 M/mm3 (4.10-5.30); REDCELL DISTRIBUTION WIDTH-CV 15.7 % (11.5-14.5)
[2021-08-04 06:58] LABS: HEMATOCRIT 28.2 % (37.0-47.0); HEMOGLOBIN 9.6 g/dl (12.5-16.0); MEAN CORPUSCULAR HEMOGLOBIN 31 pg (27-31)
[2021-08-04 06:59] LABS: MEAN CELL VOLUME 91 fl (80.0-100.0); PLATELET COUNT 327 K/mm3 (130-400)
[2021-08-04 07:13] LABS: TROPONIN-I 13.485 ng/mL (0.00-0.033)
[2021-08-04 07:16] LABS: CREATININE, serum 2.04 mg/dL (0.57-1.11); MAGNESIUM 2.2 mg/dL (1.6-2.6); POTASSIUM 3.5 mmol/L (3.5-4.5)
[2021-08-04 07:31] VITALS: BP 114/62; PULSE 71; TEMP 98
--- NOTE | 2021-08-04 07:40 | NUR ---
CRITICAL TROPONIN REPORTED TO GI [place]. NO NEW ORDERS AT THIS TIME
--- NOTE | 2021-08-04 09:00 | NUR ---
PT PLEASANT, AOX4, DENIES PAIN, MEDS GIVEN WITH EXPLANATION OF THEM. PT ASSESSMENT PERFORMED. NO OTHER NEEDS
[2021-08-04 11:17] VITALS: BP 130/58; PULSE 78; TEMP 98.3
--- NOTE | 2021-08-04 12:39 | NUR ---
Nancy: No confucianism preference Situation: Green Feed Attendant visited room during rounds Assessment: Pt was well content. Green Feed Attendant discussed life history and then made sure she knew if she had any needs to let the nurse know. Recommendation: Green Feed Attendant will follow up as needed
[2021-08-04 15:34] VITALS: BP 134/69; PULSE 83; TEMP 98.2
[2021-08-04 20:05] VITALS: BP 134/63; PULSE 75; TEMP 98.2
[2021-08-05] VITALS (7 sets, daily range): BP systolic 103–147; BP diastolic 59–84; PULSE 71–84; TEMP 98.1–98.8
--- NOTE | 2021-08-05 06:15 | NUR ---
ASSESSMENT COMPLETE FOR THIS SHIFT. PT RESTING IN BED WITH HER PROSTHESIS ON, WATCHING TV. PT DENIED PAIN, PALPITATIONS, N,V,D, SOB OR DIZZINESS. PT STATES SHE FEELS BETTER TONIGHT THEN LAST NIGHT. PT HAD AN UNEVENTFUL NIGHT THIS SHIFT. PT EXPRESSED NO OTHER NEEDS AT THIS TIME. CALL LIGHT WITHIN REACH.
--- NOTE | 2021-08-05 08:00 | NUR ---
Patient sitting up in bed watching TV. A&Ox4. VSS. IV CDI. Bilateral prosthesis by the bedside. Denies pain and discomfort. Call light within reach.
--- NOTE | 2021-08-05 18:02 | NUR ---
Patient sitting up in bed eating dinner. A&Ox3. VSS. IV CDI. Virk intact. Denies pain and discomfort. Bilateral prosthesis legs on. Call light within reach
[2021-08-06 03:36] VITALS: BP 114/56; PULSE 76; TEMP 98.5
--- NOTE | 2021-08-06 05:46 | NUR ---
ASSESSMENT COMPLETE FOR THIS SHIFT. PT RESTING IN BED WITH HER PROSTHESIS ON TONIGHT WELL, WHILE WATCHING TV. PT HAD HER PROSTHESIS ON THE WHOLE SHIFT. PT DENIED PAIN, PALPITATIONS, SOB, N,V,D OR DIZZINESS. PT HAD ANOTHER UNEVENTFUL NIGHT. PT EXPRESSED NO OTHER NEEDS AT THIS TIME. CALL LIGHT WITHIN REACH.
[2021-08-06 07:48] VITALS: BP 136/79; PULSE 75; TEMP 97.8
--- NOTE | 2021-08-06 10:22 | NUR ---
PATIENT SITTING UP EDGE OF BED. B/L PROSTHETICS IN PLACE. NO COMPLAINTS OF PAIN. REQUESTING SANCHES TO BE REMOVED, WILL CONSULT WITH NEPHROLOGY. IV IN BREAST WILL NO LONGER FLUSH. IV REMOVED. LEFT UPPER EXTREMITY, SPECIFICALLY HAND, +2 EDEMA. RIGHT UPPER EXTREMITY +1 EDEMA. PATIENT ADVISED TO ATTEMPT TO REMOVE RINGS, AND TO INFORM AUTHOR IF THEY GET TO BE TO TIGHT, RESTRICTION OF BLOOD FLOW CAN BE DANGEROUS. AUTHOR CAN CUT RINGS OFF IF REQUIRED. PATIENT REPORTS NO BOWEL MOVEMENT IN 24HRS. ACTIVE BOWEL SOUNDS. PATIENT INDEPENDENT IN ROOM.
[2021-08-06 12:20] VITALS: BP 127/67; PULSE 74; TEMP 97.9
[2021-08-06 16:19] VITALS: BP 134/70; PULSE 74; TEMP 97.9
[2021-08-06 16:34] LABS: BASO % 0.6 % (0.0-2.0); EOS # 0.3 K/mm3 (0.0-0.7); EOS % 6.1 % (0.0-4.0); GRAN # 3.5 K/mm3 (1.4-6.5); GRAN % 65.9 % (42.2-75.2); HEMOGLOBIN 10.5 g/dl (12.5-16.0); MEAN CELL VOLUME 95 fl (80.0-100.0); MEAN CORPUSCULAR HEMOGLOBIN 31 pg (27-31); MEAN CORPUSCULAR HGB CONC 32 g/dl (33.0-37.0); MEAN PLATELET VOLUME 10.4 fl (7.4-10.4); MONO # 0.4 K/mm3 (0.1-0.6); PLATELET COUNT 283 K/mm3 (130-400); RED BLOOD COUNT 3.43 M/mm3 (4.10-5.30); REDCELL DISTRIBUTION WIDTH-CV 15.1 % (11.5-14.5)
[2021-08-06 16:37] LABS: HEMATOCRIT 32.6 % (37.0-47.0)
[2021-08-06 16:51] LABS: CALCIUM 8.5 mg/dL (8.4-10.2); CREATININE, serum 1.45 mg/dL (0.57-1.11); POTASSIUM 3.9 mmol/L (3.5-4.5)
--- NOTE | 2021-08-06 18:00 | NUR ---
PATIENT INDEPENDENTLY SHOWERED TODAY. NO COMPLAINTS OF PAIN, NO SIGNIFICANT EVENTS. PATIENT UP AND OUT OF BED ALL DAY TODAY. INDEPENDENT IN ROOM. SANCHES REMOVED THIS MORNING. NO DIFFICULTY REPORTED URINATING AFTERWARDS. PATIENT WAITING FOR PROVIDERS TO INFORM ON UPDATED PLAN. OF THIS NOTE, ONLY HOSPITALIST HAD SEEN PATIENT. SHE IS VERY PLESANT AND ANXIOUS TO GET HOME.
[2021-08-06 20:13] VITALS: BP 134/81; PULSE 79; TEMP 98.4
[2021-08-06 23:44] VITALS: BP 123/69; PULSE 80; TEMP 98.2
[2021-08-07 03:28] VITALS: BP 109/50; PULSE 73; TEMP 99
[2021-08-07 06:38] LABS: BASO % 0.8 % (0.0-2.0); EOS # 0.4 K/mm3 (0.0-0.7); EOS % 7.8 % (0.0-4.0); GRAN # 2.9 K/mm3 (1.4-6.5); GRAN % 58.8 % (42.2-75.2); LYMPH # 1.2 K/mm3 (1.2-3.4); MEAN CELL VOLUME 93 fl (80.0-100.0); MEAN CORPUSCULAR HGB CONC 32 g/dl (33.0-37.0); MEAN PLATELET VOLUME 10.6 fl (7.4-10.4); MONO # 0.5 K/mm3 (0.1-0.6); MONO % 9.2 % (1.7-9.3); PLATELET COUNT 290 K/mm3 (130-400); RED BLOOD COUNT 3.28 M/mm3 (4.10-5.30); REDCELL DISTRIBUTION WIDTH-CV 14.9 % (11.5-14.5)
[2021-08-07 06:42] LABS: HEMATOCRIT 30.6 % (37.0-47.0); HEMOGLOBIN 9.9 g/dl (12.5-16.0); MEAN CORPUSCULAR HEMOGLOBIN 30 pg (27-31)
[2021-08-07 07:01] LABS: ALBUMIN 2.4 gm/dL (3.5-5.0); CALCIUM 8.6 mg/dL (8.4-10.2); CREATININE, serum 1.23 mg/dL (0.57-1.11); MAGNESIUM 1.9 mg/dL (1.6-2.6); PHOSPHOROUS 2.7 mg/dL (2.3-4.7); POTASSIUM 3.8 mmol/L (3.5-4.5)
[2021-08-07 07:40] VITALS: BP 136/75; PULSE 74; TEMP 98
--- NOTE | 2021-08-07 08:15 | NUR ---
PT SITTING UP IN CHAIR ON ROOM AIR. PT STATES THAT SHE IS NOT HAVING ANY PAIN/DISCOMFORT AT THIS TIME. PT STATES "I AM READY TO GO HOME." PT STATES NO NEEDS AT THIS TIME. CALL LIGHT IS WITHIN REACH.
--- NOTE | 2021-08-07 10:07 | NUR ---
SAVITA met with the patient to follow up. The patient states that she is doing well and will be going home today. She had no questions or concerns for SW. No additional needs at this time.
[2021-08-07 11:10] VITALS: BP 121/67; PULSE 51; TEMP 97.3
[2021-08-07] MEDS ORDERED: LIPITOR 80MG80 MG PO (11:36)
[2021-08-07] MEDS ORDERED: TOPROL XL 25MG25 MG PO (11:37)
[2021-08-07] MEDS ORDERED: PROTONIX 40MG T40 MG PO (11:38)
[2021-08-07] MEDS ORDERED: LEVEMIR FLEX100 U/ML SQ (11:40)
[2021-08-07] MEDS ORDERED: NOVOLOG FLEX100 U/ML SQ ×2 (11:41→11:42)
[2021-08-07] MEDS ORDERED: INSULIN PEN NE1 EAC1 MC (11:49)
--- NOTE | 2021-08-07 12:00 | NUR ---
SPOKE TO JC IN RADIOLOGY TO INFORM HIM OF PORTABLE CHEST XRAY ORDER. VOICES UNDERSTANDING AND STATES THAT "IT WILL BE DONE HERE SHORTLY."
[2021-08-07 15:32] VITALS: BP 131/63; PULSE 73; TEMP 97.9
== END 2021-08-07 16:59 | disposition home or self-care (01) | DRG 919 ==
LOC: COL.ER 16:44 → MEDICAL 18:57 → ICU 18:57 → MEDICAL 08-03 10:20
PROVIDERS: Family Medicine; Internal Medicine; Nurse Practitioner Family; ADMIT Internal Medicine
DX: T85.694A Other mechanical complication of insulin pump, initial encounter (principal); E10.10 Type 1 diabetes mellitus with ketoacidosis without coma; I13.0 Hypertensive heart and chronic kidney disease with heart failure and stage 1 through stage 4 chronic kidney disease, or unspecified chronic kidney disease; I50.22 Chronic systolic (congestive) heart failure; E87.1 Hypo-osmolality and hyponatremia; N17.9 Acute kidney failure, unspecified; K92.0 Hematemesis; N18.30 Chronic kidney disease, stage 3 unspecified; I25.10 Atherosclerotic heart disease of native coronary artery without angina pectoris; Z66 Do not resuscitate; E10.51 Type 1 diabetes mellitus with diabetic peripheral angiopathy without gangrene; E10.22 Type 1 diabetes mellitus with diabetic chronic kidney disease; E78.5 Hyperlipidemia, unspecified; I48.91 Unspecified atrial fibrillation; G47.30 Sleep apnea, unspecified; E10.40 Type 1 diabetes mellitus with diabetic neuropathy, unspecified; D64.9 Anemia, unspecified; G40.909 Epilepsy, unspecified, not intractable, without status epilepticus; E87.8 Other disorders of electrolyte and fluid balance, not elsewhere classified; E87.5 Hyperkalemia; K22.4 Dyskinesia of esophagus; I49.3 Ventricular premature depolarization; I44.7 Left bundle-branch block, unspecified; D75.839 Thrombocytosis, unspecified; E86.0 Dehydration; Z96.41 Presence of insulin pump (external) (internal); Z89.512 Acquired absence of left leg below knee; Z89.511 Acquired absence of right leg below knee; I25.2 Old myocardial infarction; Z95.5 Presence of coronary angioplasty implant and graft
CPT/HCPCS: 99223-AI; 99232-AI; 99233-AI; 99239; A9270; C9113; J0610; J1644; J1650; J1756; J1815; J2405; J7030

== ENCOUNTER 2022-01-11 10:17 | Day surgery (SDC) | payer OTHER ==
[~2022-01-11] VITALS: Ht 167.6 cm; Wt 101.7 kg
[~2022-01-11 10:17] MED LIST changes: +INSULIN PEN NE1 EAC1 MC; +JARDIANCE10; +LEVEMIR FLEX100 U/ML SQ; +LIPITOR 80MG80 MG PO; +NOVOLOG FLEX100 U/ML SQ; +PROTONIX 40MG T40 MG PO; +TOPROL XL 25MG25 MG PO; +VERQUVO10 MG PO
[2022-01-11 12:00] LABS: BASO # 0.1 K/mm3 (0.0-0.2); BASO % 0.4 % (0.0-2.0); EOS # 0.5 K/mm3 (0.0-0.7); GRAN # 10.2 K/mm3 (1.4-6.5); GRAN % 79.4 % (42.2-75.2); LYMPH % 7.6 % (20.0-51.0); MEAN CELL VOLUME 91 fl (80.0-100.0); MEAN CORPUSCULAR HGB CONC 33 g/dl (33.0-37.0); MEAN PLATELET VOLUME 10.8 fl (7.4-10.4); MONO # 1.1 K/mm3 (0.1-0.6); MONO % 8.4 % (1.7-9.3); PLATELET COUNT 290 K/mm3 (130-400); RED BLOOD COUNT 3.26 M/mm3 (4.10-5.30); REDCELL DISTRIBUTION WIDTH-CV 12.9 % (11.5-14.5)
[2022-01-11 12:03] LABS: HEMATOCRIT 29.5 % (37.0-47.0); HEMOGLOBIN 9.7 g/dl (12.5-16.0); MEAN CORPUSCULAR HEMOGLOBIN 30 pg (27-31)
[2022-01-11 12:12] VITALS: BP 102/53; PULSE 67; TEMP 98.5
[2022-01-11 12:24] LABS: CALCIUM 9.5 mg/dL (8.4-10.2); CREATININE, serum 2.08 mg/dL (0.57-1.11); POTASSIUM 4.1 mmol/L (3.5-4.5)
[2022-01-11] MEDS ORDERED: CRESTOR40 MG PO (12:25)
[2022-01-11] MEDS ORDERED: IMDUR 30MG30 MG/TAB PO (12:32)
[2022-01-11] MEDS ORDERED: TOPROL XL 25MG25 MG PO (12:35)
[2022-01-11] MEDS ORDERED: PROTONIX 40MG T40 MG PO (12:36)
[2022-01-11] MEDS ORDERED: MIRAPEX0.25 MG PO (12:40)
[2022-01-11] MEDS ORDERED: PEPCID AC 10MG10 MG PO (12:41)
[2022-01-11] MEDS ORDERED: LYRICA 150MG C150 MG PO (12:42)
[2022-01-11] MEDS ORDERED: TRESIBA100 UNIT/1 SQ (12:43)
[2022-01-11 15:18] VITALS: BP 99/48; PULSE 71
--- NOTE | 2022-01-11 15:18 | NUR ---
Patient returns to room 1 per cart and is awake and alert. Temp 97.4 and room air sats 93%. Left wrist AV fistula noted with pulse. Dr. Trivedi in the room and was able to feel pulse. Wound edges well approximated and no drainage noted. IV fluids infusing at TKO. Siderails up x2. Call light in reach. Spouse in room.
[2022-01-11 15:33] VITALS: BP 89/43; PULSE 69
--- NOTE | 2022-01-11 15:33 | NUR ---
Resting and denies discomfort.
[2022-01-11] MEDS ORDERED: NORCO 325 MG-51 TAB PO (15:36)
[2022-01-11 15:48] VITALS: BP 87/43; PULSE 71
--- NOTE | 2022-01-11 15:48 | NUR ---
Sipping on Diet Sprite. Denies pain or nausea.
[2022-01-11 16:03] VITALS: BP 81/44; PULSE 67
--- NOTE | 2022-01-11 16:03 | NUR ---
Resting and denies pain or nausea.
[2022-01-11 16:18] VITALS: BP 92/65; PULSE 67
--- NOTE | 2022-01-11 16:18 | NUR ---
Resting and denies nausea. AV fistula noted left wrist with pulse.
--- NOTE | 2022-01-11 16:30 | NUR ---
Sitting up on the cart. IV discontinued and site is free of redness.
--- NOTE | 2022-01-11 17:15 | NUR ---
Dismissed to home driven by spouse and taken to the vehicle per wheelchair with instructions given.
== END 2022-01-11 17:15 | disposition home or self-care (01) ==
LOC: SDCO 10:17
PROVIDERS: Nurse Anesthetist, Certified Registered; Surgery
DX: E11.22 Type 2 diabetes mellitus with diabetic chronic kidney disease (principal); I13.0 Hypertensive heart and chronic kidney disease with heart failure and stage 1 through stage 4 chronic kidney disease, or unspecified chronic kidney disease; N18.4 Chronic kidney disease, stage 4 (severe); I50.9 Heart failure, unspecified; I25.2 Old myocardial infarction; K21.9 Gastro-esophageal reflux disease without esophagitis; G47.33 Obstructive sleep apnea (adult) (pediatric); Z95.5 Presence of coronary angioplasty implant and graft; Z95.810 Presence of automatic (implantable) cardiac defibrillator; Z79.4 Long term (current) use of insulin; Z79.84 Long term (current) use of oral hypoglycemic drugs
CPT/HCPCS: A4648; C1768; J0690; J1644; J2704; J3010; J7030

== ENCOUNTER 2022-12-31 07:47 | Inpatient (IN) | payer BC ==
[~2022-12-31] VITALS: Ht 167.6 cm; Wt 101.4 kg
[2022-12-31] VITALS (7 sets, daily range): BP systolic 102–140; BP diastolic 38–60; PULSE 68–84; TEMP 98.3–99.6
[~2022-12-31 07:47] MED LIST changes: +CRESTOR40 MG PO; +DEMADEX10 MG PO; +IMDUR 30MG30 MG/TAB PO; -JARDIANCE10; +JARDIANCE10 PO; +LOPRESSOR 225 MG/TAB PO; +NATURAL IRON65 MG PO; +NITROSTAT0.4 MG/TAB SL; +NORCO 325 MG-51 TAB PO; +PEPCID AC 10MG10 MG PO; +PRINIVIL5 MG PO; +REPATHA SU140 MG/1 M SQ; +SODIUM BICARBO650 MG PO; +TRESIBA100 UNIT/1 SQ; +VENOFER IV
[2022-12-31 08:53] LABS: BASO # 0.1 K/mm3 (0.0-0.2); BASO % 0.3 % (0.0-2.0); EOS # 0.1 K/mm3 (0.0-0.7); EOS % 0.3 % (0.0-4.0); GRAN # 15.4 K/mm3 (1.4-6.5); GRAN % 89.8 % (42.2-75.2); HEMOGLOBIN 10.4 g/dl (12.5-16.0); LYMPH # 0.6 K/mm3 (1.2-3.4); LYMPH % 3.2 % (20.0-51.0); MEAN CELL VOLUME 86 fl (80.0-100.0); MEAN CORPUSCULAR HEMOGLOBIN 27 pg (27-31); MEAN CORPUSCULAR HGB CONC 31 g/dl (33.0-37.0); MEAN PLATELET VOLUME 10.6 fl (7.4-10.4); MONO % 5.9 % (1.7-9.3); PLATELET COUNT 364 K/mm3 (130-400); RED BLOOD COUNT 3.86 M/mm3 (4.10-5.30); REDCELL DISTRIBUTION WIDTH-CV 20.6 % (11.5-14.5)
[2022-12-31 08:55] LABS: HEMATOCRIT 33.3 % (37.0-47.0)
[2022-12-31 09:08] LABS: ALBUMIN 2.7 gm/dL (3.5-5.0); BILIRUBIN,TOTAL 0.7 mg/dL (0.2-1.2); CALCIUM 9.2 mg/dL (8.4-10.2); CREATININE, serum 2.15 mg/dL (0.57-1.11); POTASSIUM 3.3 mmol/L (3.5-4.5); TOTAL PROTEIN 7.2 gm/dL (6.2-8.1)
[2022-12-31 09:09] LABS: INR 1.6 (0.8-3.0); PROTHROMBIN TIME 17.2 SECONDS (9.7-12.8)
[2022-12-31 09:17] LABS: TROPONIN-I 0.066 ng/mL (0.00-0.033)
[2022-12-31 13:33] LABS: COLLECTION METHOD CLEAN CATCH
[2022-12-31 14:05] LABS: PH 5.5 (5.0-8.5); URINE APPEARANCE Clear (CLEAR/HAZY); URINE COLOR Yellow (YELLOW); URINE GLUCOSE 3+ (NEGATIVE); URINE PROTEIN(semi-quant) 2+ (NEGATIVE)
[2022-12-31 14:06] LABS: SQUAMOUS EPITHELIAL 0-2 /hpf (0-10); URINE BLOOD 1+ (NEGATIVE); URINE KETONE TRACE (NEGATIVE); URINE NITRATE Negative (NEGATIVE); URINE UROBILINOGEN 0.2 E.U/dL (0.2-1.0)
--- NOTE | 2022-12-31 14:21 | NUR ---
PATIENT BROUGHT TO FLOOR AT APPROXIMATELY 1415. PATIENT ON 2L O2 PER NC. DRESSING TO RIGHT BACK THORACIC AREA, CDI WITH GAUZE AND PAPER TAPE. PATIENT IS A BILAT AMPUTEE, REPORTS AMBULATING WITHOUT WHEELCHAIR OR WALKER. PATIENT IS SOB BUT REPORTS BREATHING HAS IMPROVED SINCE THORACENTESIS. PATIENT REPORTS MILD PAIN FROM THORACENTESIS SITE. ASSESSMENT PERFORMED. ORDERS REVIEWED. PATIENT RESTING IN BED, WAITING ON MEAL TRAY. CALL LIGHT IN REACH, NO FURTHER NEEDS AT THIS TIME.
--- NOTE | 2022-12-31 14:30 | NUR ---
PATIENT WEIGHED USING STANDING SCALE AT 225.0LB.
[2022-12-31] MEDS ORDERED: CORDARONE200 MG/TAB PO (14:42)
[2022-12-31] MEDS ORDERED: PLAVIX 75MG TAB75 MG PO (14:43)
[2022-12-31] MEDS ORDERED: ENTRESTO 24 MG1 EACH PO (14:44)
[2022-12-31] MEDS ORDERED: DEMADEX10 MG PO (14:47)
[2022-12-31] MEDS ORDERED: SODIUM BICARBO650 MG PO (14:47)
--- NOTE | 2022-12-31 16:51 | NUR ---
PATIENT RUNNING LOW GRADE TEMP, GIVEN TYLENOL 650MG.
--- NOTE | 2022-12-31 17:57 | NUR ---
DRESSING FROM THORACENTESIS SITE OOZING BLOOD. APPLIED PRESSURE FOR 5 MINUTES, REAPPLIED NEW DRESSING. DR. AVENDANO AWARE. PCT AWARE TO WATCH CONTINUED OOZING OF BLOOD.
[2023-01-01] VITALS (13 sets, daily range): BP systolic 81–125; BP diastolic 31–91; PULSE 65–77; TEMP 98–100.9
--- NOTE | 2023-01-01 03:31 | NUR ---
PATIENT SITTING ON EDGE OF BED, ALERT AND ORIENTED X4. BILATERAL PROSTHETICS ON, PT SELF AMBULATE TO BATHROOM WITH STEADY GAIT. IV IN RAC IS PATENT, CLEAN DRY AND INTACT. DRESSING TO THE LOWER RIGHT BACK HAD BLOODY DRAINAGE THAT SOAKED THROUGH THE DRESSING PADS, WITHIN 3 HOURS OF THE PREVIOUS REPORTED DRESSING CHANGE BY DAY SHIFT NURSE. FLOR DIAS NOTIFIED TO TAKE A LOOK AT IT, DRESSING CHANGED VENUS SAID TO KEEP AND EYE ON IT AND LET HER KNOW ABOUT FURTHER CHANGES/ASSESSMENTS. PT HAS NO FURTHER NEEDS, QUESTIONS, OR CONCERNS AT THIS TIME. CALL LIGHT WITHIN REACH, WILL CONTINUE TO MONITOR.
--- NOTE | 2023-01-01 04:56 | NUR ---
RIGHT LOWER BACK DRESSING NOTED TO BE SOAKED THROUGH WITH BLOODY DRAINAGE, DRESSING CHANGED AND PRESSURE APPLIED.
[2023-01-01 05:51] LABS: BASO # 0.1 K/mm3 (0.0-0.2); BASO % 0.5 % (0.0-2.0); EOS % 0.1 % (0.0-4.0); GRAN # 12.4 K/mm3 (1.4-6.5); GRAN % 87.1 % (42.2-75.2); HEMATOCRIT 30.3 % (37.0-47.0); HEMOGLOBIN 9.7 g/dl (12.5-16.0); LYMPH # 0.8 K/mm3 (1.2-3.4); LYMPH % 5.6 % (20.0-51.0); MEAN CELL VOLUME 84 fl (80.0-100.0); MEAN CORPUSCULAR HEMOGLOBIN 27 pg (27-31); MEAN CORPUSCULAR HGB CONC 32 g/dl (33.0-37.0); MEAN PLATELET VOLUME 10.9 fl (7.4-10.4); MONO # 0.9 K/mm3 (0.1-0.6); MONO % 6.3 % (1.7-9.3); PLATELET COUNT 395 K/mm3 (130-400); REDCELL DISTRIBUTION WIDTH-CV 20.2 % (11.5-14.5)
[2023-01-01 06:00] LABS: CREATININE, serum 2.19 mg/dL (0.57-1.11); POTASSIUM 3.3 mmol/L (3.5-4.5)
[2023-01-01] MEDS ORDERED: VERQUVO10 MG PO (08:08)
--- NOTE | 2023-01-01 09:46 | NUR ---
Autocad met with patient to discuss discharge planning. Patient lives in [place], [place] with her , Chad (ph#[phone]) [address]. Hurst for primary care. Patient obtains medications from the [facility] in with no difficulties. Patient has a home CPAP and denies any other DME needs. Patient has a history of bilateral BKA with prosthesis. Patient is independent with ALDS and driving. 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 Patient has DPOA-HC in EMR designating her . Patient plans to return home at time of discharge. Discharge Plan: Home
--- NOTE | 2023-01-01 14:13 | NUR ---
Initial visit: Bar Gauger And Lubricator Tender stopped by room on rounds. Pt was resting and content. Pt has no needs right now. Bar Gauger And Lubricator Tender will follow up as needed.
--- NOTE | 2023-01-01 16:40 | NUR ---
PATIENT HAS A PRESSURE DRESSING OVER THE RIGHT BACK FROM WHERE THORACENTESIS WAS PERFORMED ON 12/31. SITE IS OOZING BLOODY DRAINAGE. DRESSING NEEDS CHANGED ABOUT EVERY 6 HOURS. NOTIFIED PROVIDER. HOLDING ALL HEPARIN TO SEE IF THERE ARE ANY IMPROVEMENTS. DRESSING CHANGED AT 1630. CDI.
--- NOTE | 2023-01-01 16:56 | NUR ---
PATIENT HAS SWELLING TO THE LEFT ARM WHERE FISTULA SITE IS. THERE IS ALSO SWELLING IN THE LEFT HAND. IT IS NOT PITTING EDEMA. PATIENT STATED THAT SHE DEALS WITH THIS NORMALLY AT HOME AND STATES IT IS DUE TO THE FISTULA. NURSE NOTIFIED PROVIDER, IS AWARE. WILL CONTINUE TO WATCH OVERNIGHT. PATIENT HAS BEEN ON PLAVIX AND HEPARIN THREE TIMES PER DAY.
--- NOTE | 2023-01-01 21:00 | NUR ---
Patient resting in bed. Denies any pain or needs at this time. Assessment complete. IV flushes easily with no complications. Dressing from thora is clean, dry, and intact. Call light and personal items in reach. Bed in low position.
[2023-01-02] VITALS (19 sets, daily range): BP systolic 78–114; BP diastolic 42–68; PULSE 59–98; TEMP 97.7–98.6
--- NOTE | 2023-01-02 00:50 | NUR ---
Cadence BENITEZ, called and notified of BP of 80/42. Patient is asymptomatic and notified she has some crackles in her lungs. Recieved orders for chest x-ray.
--- NOTE | 2023-01-02 03:55 | NUR ---
Cadence LOFT WORKER PILE DRIVING, contacted for BP of 78/43. Recieved orders for NS 250mL bolus. 0510- Bolus completed and manual BP is 96/62.
--- NOTE | 2023-01-02 04:55 | NUR ---
Cadence MIDDLEWARE ADMINISTRATOR, contacted for BP of 78/43. Recieved orders for NS 250mL bolus. 0510- Bolus completed and manual BP is 96/62.
--- NOTE | 2023-01-02 05:45 | NUR ---
Patient resting in bed. Denies any pain at this time. Denies any needs at this time. Call light and personal items in reach. Bed in low position
[2023-01-02 05:54] LABS: BASO % 0.4 % (0.0-2.0); EOS # 0.1 K/mm3 (0.0-0.7); EOS % 0.9 % (0.0-4.0); GRAN # 7.7 K/mm3 (1.4-6.5); GRAN % 82.9 % (42.2-75.2); LYMPH # 0.8 K/mm3 (1.2-3.4); LYMPH % 8.7 % (20.0-51.0); MEAN CELL VOLUME 84 fl (80.0-100.0); MEAN CORPUSCULAR HGB CONC 32 g/dl (33.0-37.0); MEAN PLATELET VOLUME 10.8 fl (7.4-10.4); MONO # 0.6 K/mm3 (0.1-0.6); MONO % 6.7 % (1.7-9.3); PLATELET COUNT 329 K/mm3 (130-400); RED BLOOD COUNT 3.19 M/mm3 (4.10-5.30); REDCELL DISTRIBUTION WIDTH-CV 20.2 % (11.5-14.5)
[2023-01-02 05:57] LABS: HEMATOCRIT 26.7 % (37.0-47.0); HEMOGLOBIN 8.6 g/dl (12.5-16.0); MEAN CORPUSCULAR HEMOGLOBIN 27 pg (27-31)
[2023-01-02 06:01] LABS: CALCIUM 8.3 mg/dL (8.4-10.2); CREATININE, serum 2.61 mg/dL (0.57-1.11); POTASSIUM 3.5 mmol/L (3.5-4.5)
[2023-01-02 10:34] LABS: PLEURAL FLUID RBC 1000 /mm3 (0-0); PLEURAL FLUID WBC 725 /mm3
[2023-01-02 10:36] LABS: PLEURAL FLUID APPEARANCE CLEAR; PLEURAL FLUID COLOR YELLOW
--- NOTE | 2023-01-02 12:52 | NUR ---
Patient A&O X 4, bandaid on the left lower back, CDI. No other concerns at this time. Continue monitoring.
[2023-01-02] MEDS ORDERED: PACERONE100 MG PO (14:14)
--- NOTE | 2023-01-02 15:39 | NUR ---
Patient was provided with discharge information, all questions answered. IV access and telemetry were discontinued.
--- NOTE | 2023-01-02 15:58 | NUR ---
Patient was provided with discharge information, all questions answered. IV access and telemetry were discontinued.
== END 2023-01-02 16:00 | disposition home or self-care (01) | DRG 291 ==
LOC: COL.ER 07:47 → MEDICAL 12:11
PROVIDERS: Emergency Medicine; Internal Medicine; ADMIT Internal Medicine
PROC: 0W993ZZ Drainage of Right Pleural Cavity, Percutaneous Approach (ICD-10-PCS; 2022-12-31)
PROC: 5A09457 Assistance with Respiratory Ventilation, 24-96 Consecutive Hours, Continuous Positive Airway Pressure (ICD-10-PCS; 2022-12-31)
PROC: 0W9B3ZZ Drainage of Left Pleural Cavity, Percutaneous Approach (ICD-10-PCS; principal; 2023-01-02)
DX: I13.0 Hypertensive heart and chronic kidney disease with heart failure and stage 1 through stage 4 chronic kidney disease, or unspecified chronic kidney disease (principal); I50.23 Acute on chronic systolic (congestive) heart failure; I31.39 Other pericardial effusion (noninflammatory); E87.20 Acidosis, unspecified; K21.9 Gastro-esophageal reflux disease without esophagitis; E78.5 Hyperlipidemia, unspecified; G47.33 Obstructive sleep apnea (adult) (pediatric); Z96.653 Presence of artificial knee joint, bilateral; I48.91 Unspecified atrial fibrillation; N18.9 Chronic kidney disease, unspecified; E11.40 Type 2 diabetes mellitus with diabetic neuropathy, unspecified; D64.9 Anemia, unspecified; E11.65 Type 2 diabetes mellitus with hyperglycemia; I95.9 Hypotension, unspecified; I25.10 Atherosclerotic heart disease of native coronary artery without angina pectoris; D72.829 Elevated white blood cell count, unspecified; Z95.0 Presence of cardiac pacemaker; Z90.89 Acquired absence of other organs; Z90.710 Acquired absence of both cervix and uterus; I25.2 Old myocardial infarction; Z95.5 Presence of coronary angioplasty implant and graft; Z88.6 Allergy status to analgesic agent; Z88.1 Allergy status to other antibiotic agents; Z88.8 Allergy status to other drugs, medicaments and biological substances; Z79.4 Long term (current) use of insulin; Z79.899 Other long term (current) drug therapy; Z79.02 Long term (current) use of antithrombotics/antiplatelets
CPT/HCPCS: A9270; G0378; J1644; J1815; J1885; J1940; J7050

== ENCOUNTER 2023-02-13 18:12 | Inpatient (IN) | payer BC ==
[~2023-02-13] VITALS: Ht 167.6 cm; Wt 92.5 kg
[~2023-02-13 18:12] MED LIST changes: +CEFTIN500 MG PO; +CORDARONE200 MG/TAB PO; +PACERONE100 MG PO; +PACERONE400 MG PO
[2023-02-13 19:25] LABS: BASO # 0.1 K/mm3 (0.0-0.2); BASO % 0.5 % (0.0-2.0); EOS % 0.1 % (0.0-4.0); GRAN # 9.6 K/mm3 (1.4-6.5); GRAN % 86.4 % (42.2-75.2); LYMPH # 0.7 K/mm3 (1.2-3.4); MEAN CELL VOLUME 83 fl (80.0-100.0); MEAN CORPUSCULAR HGB CONC 32 g/dl (33.0-37.0); MEAN PLATELET VOLUME 10.8 fl (7.4-10.4); MONO # 0.7 K/mm3 (0.1-0.6); MONO % 6.6 % (1.7-9.3); PLATELET COUNT 247 K/mm3 (130-400); RED BLOOD COUNT 2.98 M/mm3 (4.10-5.30); REDCELL DISTRIBUTION WIDTH-CV 21.3 % (11.5-14.5)
[2023-02-13 19:31] LABS: HEMATOCRIT 24.8 % (37.0-47.0); HEMOGLOBIN 7.9 g/dl (12.5-16.0); MEAN CORPUSCULAR HEMOGLOBIN 27 pg (27-31)
[2023-02-13 19:44] LABS: ALBUMIN 2.5 gm/dL (3.5-5.0); BILIRUBIN,TOTAL 0.8 mg/dL (0.2-1.2); CALCIUM 8.6 mg/dL (8.4-10.2); CREATININE, serum 3.73 mg/dL (0.57-1.11); TOTAL PROTEIN 7.1 gm/dL (6.2-8.1)
[2023-02-13 19:46] LABS: POTASSIUM 2.8 mmol/L (3.5-4.5)
[2023-02-13 19:51] LABS: TROPONIN-I 0.08 ng/mL (0.00-0.033)
--- NOTE | 2023-02-13 23:20 | NUR ---
PT ARRIVED TO ICU VIA BED ACCOMPANIED BY ED STAFF. PT ALERT AND ORIENTED, FULL ASSESMENT COMPLETED, PT CONNECTED TO CRM. BP 80S/40S. PT BELONGINGS IN ROOM (2 BAGS, CPAP, JEWLERY). CALL LIGHT IN REACH, PLAN OF CARE ONGOING.
[2023-02-13 23:54] VITALS: O2SAT 93
[2023-02-13 23:56] VITALS: O2SAT 93
[2023-02-13 23:57] VITALS: O2SAT 96
[2023-02-13 23:59] VITALS: O2SAT 95
[2023-02-14] VITALS (1371 sets, daily range): BP systolic 76–123; BP diastolic 32–58; PULSE 60–622; TEMP 98.3–100.8; O2SAT 45–100
--- NOTE | 2023-02-14 01:15 | NUR ---
CONTACTED ALLY DUE TO PT COMPLAINING OF BURNING SENSATION DUE TO IV POTASSIUM. DISCUSSED THE REQUEST TO SWITCH TO PO POTASSIUM REPLACEMENT. IV POTASSIUM D/C, REPLACED WITH ORAL EFFER K+ TABLETS.
[2023-02-14 05:09] LABS: MEAN CELL VOLUME 82 fl (80.0-100.0); MEAN CORPUSCULAR HGB CONC 32 g/dl (33.0-37.0); MEAN PLATELET VOLUME 11.3 fl (7.4-10.4); PLATELET COUNT 344 K/mm3 (130-400); RED BLOOD COUNT 3.13 M/mm3 (4.10-5.30); REDCELL DISTRIBUTION WIDTH-CV 21.2 % (11.5-14.5)
[2023-02-14 05:16] LABS: HEMOGLOBIN 8.2 g/dl (12.5-16.0); MEAN CORPUSCULAR HEMOGLOBIN 26 pg (27-31)
[2023-02-14 05:17] LABS: HEMATOCRIT 25.8 % (37.0-47.0)
[2023-02-14 05:27] LABS: CALCIUM 8.8 mg/dL (8.4-10.2); CREATININE, serum 4.51 mg/dL (0.57-1.11); MAGNESIUM 1.7 mg/dL (1.6-2.6); POTASSIUM 3.1 mmol/L (3.5-4.5)
[2023-02-14 05:43] LABS: TROPONIN-I 0.084 ng/mL (0.00-0.033)
--- NOTE | 2023-02-14 07:15 | NUR ---
Report received from KAY Huang. Reviewed gtt rates, Levo infusing at 0.07 mcg/kg/min. Reviewed labs. Pt resting in bed, call light within reach. Reviewed POC.
--- NOTE | 2023-02-14 08:47 | NUR ---
Pt has fistula to GUDELIA. Thill not palpated, bruit asculated.
--- NOTE | 2023-02-14 10:37 | NUR ---
Initial visit; Patient stated she was glad to see Rejector, and mentioned she was doing better than yesterday. She is hoping to be discharged . Rejector listened as patient expressed her feelings which seemingly brought peace to the patient. .
--- NOTE | 2023-02-14 10:58 | NUR ---
Levo placed on standby per Dr. Vigil. Dr. Vigil states he is ok with BP in the 80s as he thinks she lives there and as long as she is not symptomatic he is fine with SBP in the 80s.
--- NOTE | 2023-02-14 18:59 | NUR ---
PT requested her glucose to be checked becaues her dexacom alerted and woke her up from sleep. Glucose is 54 1855. PT requests to drink juice and try a snack before using glucose tabs. will recheck POC BG at 1910.
--- NOTE | 2023-02-14 20:00 | NUR ---
PT RESTING IN BED AT THIS TIME AND OPENS EYES TO SOUND OF DOOR. BP AND BLOOD SUGARS HAVE BEEN LOW AND BEING MONITORED AT THIS TIME. PT IS A&O X4, DENIES SOA, DIZZINESS, PAIN, OR ANY IMMEDIATE NEEDS. PT REPORTS SHE HAD DIALYSIS AND IT WORKED "TOO WELL". PT HAS A FISTULA TO HER L ARM THAT IS NOT ABLE TO BE ACCESSED PER PT, A LUQ ABDOMEN PERITONEAL CATHETER WITH A CDI DRESSING, AND A R CHEST HEMODIALYSIS DOUBLE LUMEN PORT. PT HAS B BKA WITH PROSTHEITC LEGS IN PLACE AT THIS TIME. CARE PLAN REVIEWED, BED IN LOW POSITION, CALL LIGHT WITHIN REACH AND PT DENIES ADDITIONAL NEEDS AT THIS TIME.
--- NOTE | 2023-02-14 23:00 | NUR ---
KAY BLANCO ASSISTING WITH INITIATING NEW IV SITE. ATTEMPT X2 UNSUCCESSFUL. HOSPITALIST NOTIFIED OF ONE IV SITE TO R WRIST AND IV ORDERS. CENTRAL LINE PLACEMENT TO BE PLACED.
--- NOTE | 2023-02-14 23:56 | NUR ---
VANCO ADMINISTRATION BEING HELD AT THIS TIME PENDING CENTRAL LINE ACCESS.
[2023-02-15] VITALS (1386 sets, daily range): BP systolic 81–115; BP diastolic 46–54; PULSE 58–83; TEMP 98.3–99.9; O2SAT 66–100
--- NOTE | 2023-02-15 00:34 | NUR ---
Vancomycin Initial Dosing Pharmacy Note Ordering provider: Bharati Zeng MD Indication/duration: Empiric x 7 days Relevant comorbidities: DM1, CHF, ESRD w/ dialysis MWF LABS: WBC = 12.4, SCr = 4.51 Recommendation: Will dose intermittantly based on levels after dialysis. Loading dose: 2 grams Maintenance dose: Based on levels. Trough goal: 15-20 ug/mL
--- NOTE | 2023-02-15 01:23 | NUR ---
DR PRATT AT BEDSIDE AT 0038. PROCEDURE REVIEWED AND QUESTIONS ANSWERED. R FEMORAL CENTRAL LINE PLACED AT THIS TIME. PROCEDURE ENDED AT 0111. LEVOPHED DRIP MOVED TO CENTRAL LINE AND IS INFUSING WITHOUT ISSUE THROUGH THE BLUE PORT. DURING PROCEDURE PT REQUESTED HER BLOOD GLUCOSE TO BE CHECKED. BLOOD GLUCOSE WAS 89. JUICE REQUESTED AND PROVIDED. PT DENIES ADDITIONAL NEEDS AT THIS TIME.
--- NOTE | 2023-02-15 02:54 | NUR ---
ENTERED PT ROOM TO ANSWER CALL LIGHT AND FOUND BLOOD TO GOWN. PT PLACED ON BEDPAN AND FOUND TO BE INCONTINENT OF STOOL AT THIS TIME. LINEN CHANGED, R FEMORAL CENTRAL LINE DRESSING CHANGED IN STERIL PROCESS. DURING DRESSING CHANGE, PT REQUESTED HER BLOOD GLUCOSE BE CHECKED. BLOOD GLUCOSE IS 87 AT THIS TIME. HAILEY RENE REQUESTED AND PROVIDED. NO ADDITIONAL NEEDS VOICED OR ANTICIPATED AT THIS TIME.
[2023-02-15 04:29] LABS: BASO % 0.7 % (0.0-2.0); EOS # 0.1 K/mm3 (0.0-0.7); EOS % 1.3 % (0.0-4.0); GRAN # 4.8 K/mm3 (1.4-6.5); GRAN % 78.7 % (42.2-75.2); LYMPH # 0.7 K/mm3 (1.2-3.4); LYMPH % 11.1 % (20.0-51.0); MEAN CELL VOLUME 85 fl (80.0-100.0); MEAN CORPUSCULAR HGB CONC 31 g/dl (33.0-37.0); MEAN PLATELET VOLUME 11.1 fl (7.4-10.4); MONO # 0.5 K/mm3 (0.1-0.6); RED BLOOD COUNT 2.89 M/mm3 (4.10-5.30)
[2023-02-15 04:48] LABS: HEMATOCRIT 24.6 % (37.0-47.0); HEMOGLOBIN 7.6 g/dl (12.5-16.0); MEAN CORPUSCULAR HEMOGLOBIN 26 pg (27-31); PLATELET COUNT 231 K/mm3 (130-400)
[2023-02-15 04:50] LABS: ALBUMIN 2.2 gm/dL (3.5-5.0); BILIRUBIN,TOTAL 0.5 mg/dL (0.2-1.2); CALCIUM 8.3 mg/dL (8.4-10.2); CREATININE, serum 5.77 mg/dL (0.57-1.11); MAGNESIUM 1.7 mg/dL (1.6-2.6); POTASSIUM 3.6 mmol/L (3.5-4.5); TOTAL PROTEIN 6.5 gm/dL (6.2-8.1)
--- NOTE | 2023-02-15 09:10 | NUR ---
0900 LB DIALYSIS NURSE AT BEDSIDE SETTING UP EQUIPMENT FOR HEMODIALYSIS. PT CONSENT SIGNED AT THIS TIME.
--- NOTE | 2023-02-15 13:26 | NUR ---
Dialysis Note Pt was ran 1on1 in ICU. goal was set for 1 kg and 1kg of fluid removed. pt tolerated tx well. cvc care per protocol. pt denied needs. Report given to primary RN.
[2023-02-15 13:57] LABS: INR 1.4 (0.8-3.0); PROTHROMBIN TIME 14.9 SECONDS (9.7-12.8)
[2023-02-15 14:07] LABS: BASO % 0.7 % (0.0-2.0); EOS % 0.5 % (0.0-4.0); GRAN # 5.1 K/mm3 (1.4-6.5); GRAN % 83.9 % (42.2-75.2); LYMPH # 0.5 K/mm3 (1.2-3.4); LYMPH % 8.5 % (20.0-51.0); MEAN CELL VOLUME 84 fl (80.0-100.0); MEAN CORPUSCULAR HGB CONC 31 g/dl (33.0-37.0); MEAN PLATELET VOLUME 10.9 fl (7.4-10.4); MONO # 0.4 K/mm3 (0.1-0.6); MONO % 6.1 % (1.7-9.3); PLATELET COUNT 239 K/mm3 (130-400); RED BLOOD COUNT 3.04 M/mm3 (4.10-5.30); REDCELL DISTRIBUTION WIDTH-CV 21.1 % (11.5-14.5)
[2023-02-15 14:09] LABS: HEMATOCRIT 25.6 % (37.0-47.0); HEMOGLOBIN 7.8 g/dl (12.5-16.0); MEAN CORPUSCULAR HEMOGLOBIN 26 pg (27-31)
--- NOTE | 2023-02-15 15:42 | NUR ---
Customer Relations Coordinator met with Patient and at bedside to conduct Care Managment Assessment and discuss discharge planning. Patient lives with her in [place], [place] and is established with PCP Dr. Hurst. Patient is covered by [facility] for insurance and requests discharge medications be sent to [facility] in [place], [place]. Patient endorses CPAP prior to admission and states to have all neccisary DME for ambulation. Patient presents no concerns with ADL/IADLs prior to admission and denies having any services. Patient states to not have DPOAHC and declines form at this time. Patient anticipates to discharge home when medically ready.
--- NOTE | 2023-02-15 18:25 | NUR ---
1545 DR. HARRIS ROUNDED ON PT. DR. HARRIS NOTED CENTRAL LINE SITE SITE STILL WITH OZZING FROM SITE. DR. HARRIS STATED TO CONTINUE WITH PRESURE DRESSING. NEW DRESSING PLACED OLD WAS LEAKING ON BED SHEETS. LARGE CLOT WAS NOTED UNDER DRESSING. NEW DRESSING PLACED AND PRESSURE DRESSING REPLACED.
--- NOTE | 2023-02-15 18:27 | NUR ---
1500 PT C/O INCREASE ABD CRAMPING AND FELT HER ABD WAS MORE DISTENDED. DR. HARRIS CONTACTED WITH NO ANSWER. CALL TO INSTRUCTOR PAINTING, HILARIO STATED DR. HARRIS WAS ON HER WAY DOWN TO ROUND ON ICU. 1545 DR. HARRIS IN PT ROOM TO ROUND. PT EXPRESSED HER CONCERNS. ULTRA SOUND ORDERED HOWEVER WHEN CALLED ULTRASOUND WAS NOT IN BUILDING/ AVAILABLE. DR. HARRIS UPDATED. SHORTLY AFTER DR. HARRIS CALLED THIS NURSE AND STATED SHE SPOKE WITH DR. DIAMOND AND HE WILL BE IN TOMORROW MORNING TO DO A THORACENTESIS ON PT. PT AND PT UPDATED. UPSET THAT TREATMENT WAS NOT BEING DONE TODAY. THIS NURSE EXPLAINED/ CALM PT DOWN AND DID TELL HIM HE WOULD SPEAK WITH INSTRUCTOR PAINTING ABOUT HIS CONCERN AND THAT THEY HAVE EVERY RIGHT AT ANYTIME TO REQUEST TRANSFER IF THEY FELT THEY WANTED TO RECIEVE CARE ELSEWHERE. PT WAS CALM AND UNDERSTANDING BUT STILL FRUSTRATED WITH SITUATION BUT UNDERSTOOD THAT MEDICAL WAS VERY BUSY AND THAT WAS THE REASON DR. HARRIS DIDNT MAKE IT DOWN TO ICU UNTIL LATER THIS AFTERNOON. INSTRUCTOR PAINTING UPDATED ON CONVERSATION WITH AND HIS FRUSTATIONS BUT HE WAS NOT INTERESTED IN MOVING PT AT THIS TIME.
--- NOTE | 2023-02-15 21:45 | NUR ---
HAS OLD FISTULA TO LEFT ARM CLEAN DRY INTACT/ HAS RIGH UPPER CHEST SITE FOR DIAYLSIS CLEAN DRY INTACT CLEAR BANDAGE TO SITE/ HAS PERITONEAL DRAIN SITE LEFT ABDOMIN CLEAN DRY INTACT WITH DRAIN TUBING ATTACHED AND CLOSED. CENTRAL LINE PLACE RIGHT FEMORAL OOZING BLOOD FROM SITE BANDAGED AND SECURE/ CLARKE PRESSURE APPLIED TO BANDAGED SITE FOR 10 MINUTES/ OOZING PERSISTS REAPPLIED DRESSING WITH 3 LB SAND BAGE FOR PRESSURE TO SITE BLEEDING HAS STOPPED WILL KEEP OBSERVATION AT SITE
[2023-02-16] VITALS (1236 sets, daily range): BP systolic 78–123; BP diastolic 34–86; PULSE 60–75; TEMP 97.5–98.5; O2SAT 51–100
[2023-02-16 04:37] LABS: BASO % 0.7 % (0.0-2.0); EOS # 0.1 K/mm3 (0.0-0.7); EOS % 1.3 % (0.0-4.0); GRAN # 4.8 K/mm3 (1.4-6.5); GRAN % 79.7 % (42.2-75.2); LYMPH # 0.6 K/mm3 (1.2-3.4); LYMPH % 10.5 % (20.0-51.0); MEAN CELL VOLUME 82 fl (80.0-100.0); MEAN CORPUSCULAR HGB CONC 32 g/dl (33.0-37.0); MEAN PLATELET VOLUME 10.9 fl (7.4-10.4); MONO # 0.4 K/mm3 (0.1-0.6); MONO % 7.3 % (1.7-9.3); PLATELET COUNT 297 K/mm3 (130-400); RED BLOOD COUNT 2.67 M/mm3 (4.10-5.30); REDCELL DISTRIBUTION WIDTH-CV 20.9 % (11.5-14.5)
[2023-02-16 04:40] LABS: MEAN CORPUSCULAR HEMOGLOBIN 26 pg (27-31)
[2023-02-16 04:57] LABS: ALBUMIN 2.4 gm/dL (3.5-5.0); BILIRUBIN,TOTAL 0.5 mg/dL (0.2-1.2); CALCIUM 8.5 mg/dL (8.4-10.2); CREATININE, serum 4.51 mg/dL (0.57-1.11); POTASSIUM 3.1 mmol/L (3.5-4.5); TOTAL PROTEIN 6.3 gm/dL (6.2-8.1)
--- NOTE | 2023-02-16 07:00 | NUR ---
REPORT RECEIVED FROM KAY BAHENA. PT RESTING IN BED, VSS. LEVO INFUSING TO R FEMORAL CENTRAL LINE. PT ALERT AND ORIENTED, DENIES NEEDS AT THIS TIME, CALL LIGHT IN REACH.
--- NOTE | 2023-02-16 11:19 | NUR ---
D: Pig Breeder visit offer to Patient during Pig Breeder rounds. A: Patient declined Pig Breeder visit. P: No Pig Breeder visit or assessment completed.
[2023-02-16 19:57] LABS: COLLECTION METHOD CLEAN CATCH
[2023-02-16 20:18] LABS: URINE APPEARANCE Clear (CLEAR/HAZY); URINE BLOOD 2+ (NEGATIVE); URINE COLOR Yellow (YELLOW); URINE GLUCOSE Negative (NEGATIVE); URINE KETONE Negative (NEGATIVE); URINE NITRATE Negative (NEGATIVE); URINE PROTEIN(semi-quant) 3+ (NEGATIVE); URINE UROBILINOGEN 0.2 E.U/dL (0.2-1.0)
[2023-02-16 20:19] LABS: URINE BACTERIA Many /hpf (NONE SEEN)
--- NOTE | 2023-02-16 22:01 | NUR ---
PATIENT UP TO COMMODE CHAIR, HAS ARTIFICIAL LIMBS INPLACE AND FUNCTIONING VERY WELL STANDBY ASSIST IF NEEDED, THEN SITTING ON BED LIMBS ZHANG
[2023-02-17] VITALS (708 sets, daily range): BP systolic 96–116; BP diastolic 45–59; PULSE 62–72; TEMP 98.4–98.5; O2SAT 65–100
--- NOTE | 2023-02-17 02:52 | NUR ---
PATIENT SHAYE WITH LOW CBS AT 66// MARY JANE EDDY AND HAILEY RENE PROVIDED
[2023-02-17 03:50] LABS: BASO % 0.5 % (0.0-2.0); EOS # 0.2 K/mm3 (0.0-0.7); EOS % 2.5 % (0.0-4.0); GRAN # 5.7 K/mm3 (1.4-6.5); GRAN % 78.1 % (42.2-75.2); LYMPH # 0.9 K/mm3 (1.2-3.4); LYMPH % 11.9 % (20.0-51.0); MEAN CELL VOLUME 84 fl (80.0-100.0); MEAN CORPUSCULAR HGB CONC 31 g/dl (33.0-37.0); MEAN PLATELET VOLUME 10.8 fl (7.4-10.4); MONO # 0.5 K/mm3 (0.1-0.6); MONO % 6.7 % (1.7-9.3); PLATELET COUNT 297 K/mm3 (130-400); RED BLOOD COUNT 2.86 M/mm3 (4.10-5.30); REDCELL DISTRIBUTION WIDTH-CV 20.9 % (11.5-14.5)
[2023-02-17 03:52] LABS: HEMATOCRIT 23.9 % (37.0-47.0); HEMOGLOBIN 7.5 g/dl (12.5-16.0); MEAN CORPUSCULAR HEMOGLOBIN 26 pg (27-31)
[2023-02-17 04:07] LABS: ALANINE AMINOTRANSFERASE < 6 U/L (0-55); ALBUMIN 2.3 gm/dL (3.5-5.0); ALKALINE PHOSPHATASE 135 U/L (40-150); ANION GAP 16 mmol/L (7-16); AST,SGOT 15 U/L (5-34); BILIRUBIN,TOTAL 0.4 mg/dL (0.2-1.2); BLOOD UREA NITROGEN 28 mg/dL (10-20); CALCIUM 8.7 mg/dL (8.4-10.2); CARBON DIOXIDE 27 mmol/L (22-29); CHLORIDE 97 mmol/L (98-107); CREATININE, serum 5.54 mg/dL (0.57-1.11); GLUCOSE 88 mg/dL (70-99); MAGNESIUM 1.7 mg/dL (1.6-2.6); POTASSIUM 3.9 mmol/L (3.5-4.5); SODIUM 140 mmol/L (136-145); TOTAL PROTEIN 6.8 gm/dL (6.2-8.1)
--- NOTE | 2023-02-17 08:56 | NUR ---
Report received from KAY Canada. Pt resting in bed, VSS. Levo infusing to R femoral central line, see flow sheet for rate. Central line dressing CDI, no bleeding noted. Pt denies needs at this time, call light in reach.
--- NOTE | 2023-02-17 16:19 | NUR ---
LEVOPHED DISCONTINUED AT 0730, BP REMAINS STABLE THROUGHOUT DAY. R FEMORAL CENTRAL LINE REMOVED, PT LAID FLAT FOR 1 HOUR AFTER REMOVAL, NO BLEEDING NOTED. PT DISCHARGED TO HOME W/ AT 1550. PT ADVISED TO NOT TAKE BLOOD PRESSURE MEDS UNTIL DIALYSIS APPT.
== END 2023-02-17 15:50 | disposition home or self-care (01) | DRG 280 ==
LOC: COL.ER 18:12 → ICU 22:47
PROVIDERS: Emergency Medicine; Hospitalist; Physician Assistant; ADMIT Internal Medicine
PROC: 06HY33Z Insertion of Infusion Device into Lower Vein, Percutaneous Approach (ICD-10-PCS; 2023-02-14)
PROC: 5A1D70Z Performance of Urinary Filtration, Intermittent, Less than 6 Hours Per Day (ICD-10-PCS; 2023-02-15)
PROC: 0W9G3ZX Drainage of Peritoneal Cavity, Percutaneous Approach, Diagnostic (ICD-10-PCS; principal; 2023-02-16)
DX: I95.9 Hypotension, unspecified (principal); N18.6 End stage renal disease; I21.A1 Myocardial infarction type 2; I13.2 Hypertensive heart and chronic kidney disease with heart failure and with stage 5 chronic kidney disease, or end stage renal disease; J90 Pleural effusion, not elsewhere classified; I47.20 Ventricular tachycardia, unspecified; I50.22 Chronic systolic (congestive) heart failure; E87.6 Hypokalemia; E10.22 Type 1 diabetes mellitus with diabetic chronic kidney disease; E78.5 Hyperlipidemia, unspecified; K21.9 Gastro-esophageal reflux disease without esophagitis; G47.33 Obstructive sleep apnea (adult) (pediatric); D63.1 Anemia in chronic kidney disease; I25.5 Ischemic cardiomyopathy; Z20.822 Contact with and (suspected) exposure to COVID-19; E10.649 Type 1 diabetes mellitus with hypoglycemia without coma; E10.21 Type 1 diabetes mellitus with diabetic nephropathy; E10.40 Type 1 diabetes mellitus with diabetic neuropathy, unspecified; Z88.6 Allergy status to analgesic agent; Z88.1 Allergy status to other antibiotic agents; Z88.8 Allergy status to other drugs, medicaments and biological substances; Z90.710 Acquired absence of both cervix and uterus; Z99.2 Dependence on renal dialysis; Z95.810 Presence of automatic (implantable) cardiac defibrillator; Z89.522 Acquired absence of left knee; Z89.521 Acquired absence of right knee; Z79.4 Long term (current) use of insulin; Z79.899 Other long term (current) drug therapy; Z23 Encounter for immunization
CPT/HCPCS: J0696; J1644; J1815; J3370; J3480; J7040; J7050; J7060; P9047; Q3014